=== PATIENT | female | born 1985 | race Caucasian/White ===

== ENCOUNTER 2019-12-20 10:50 | Inpatient (IN) | payer BC ==
[~2019-12-20] VITALS: Ht 163.6 cm; Wt 86.0 kg
[2019-12-20] MEDS ORDERED: LEVE100015 PO (12:38)
[2019-12-20] MEDS ORDERED: METH750T3 PO (12:38)
[2019-12-20] MEDS ORDERED: IBUP-1773 PO (12:38)
[2019-12-20] MEDS ORDERED: POLY17PO6 PO (12:38)
[2019-12-20] MEDS ORDERED: ACET-2840 PO (12:38)
[2019-12-20] MEDS ORDERED: LEVE500T99 PO (12:38)
[2019-12-20] MEDS ORDERED: ENOX30DI4 SQ (12:38)
[2019-12-20] MEDS ORDERED: SENN-109 PO (12:38)
--- NOTE | 2019-12-20 12:39 | NUR ---
THE MED REC WAS ENTERED USING THE DISCHARGE ORDERS FROM [facility]. ONCE MEDICATIONS ARE CONTINUED I WILL SPEAK WITH THE PT AND UPDATE THE MED REC/NOTES NEEDED Addendum: 12/20/19 at 1530 by LEAH HERNANDEZ CPhT THERE IS A SCRIPT ON THE PTS CHART FROM [facility] FOR OXYCODONE HOWEVER THIS MED WAS NOT LISTED ON THE DISCHARGE ORDERS. I LET THE NURSE RAVI KNOW OF THIS AND SHE WAS GOING TO REACH OUT TO DR. DONNELLY. THE PHARMACIST VERIFYING THE ORDERS WAS ALSO QUESTIONING THE TYLENOL AND IBUPROFEN- ON THE DISCHARGE ORDERS THEY ARE LISTED SCHEDULED MEDS (NEITHER ONE IS LISTED PRN OR SAYS ANYTHING TO THAT AFFECT). RAVI WAS ALSO GOING TO FIND OUT FROM DR. DONNELLY IF APAP AND IBUPROFEN SHOULD BE SCHEDULED OR PRN Addendum: 12/22/19 at 1005 by LEAH HERNANDEZ CPhT I SPOKE WITH THE PT AND GOT A MEDICATION LIST FROM [facility] TO COMPLETE THE MED REC. MEDICATIONS THAT HAVE BEEN REMOVED DUE TO PT NOT TAKING PRIOR TO [facility]: METHOCARBAMOL 750MG MIRALAX LOVENOX SENNA-S PT SAYS SHE DOES TAKE TYLENOL AND IBUPROFEN WHILE AT HOME PRN- THE DISCHARGE ORDERS FROM [facility] HAD THEM LISTED SCHEDULED. I DID UPDATE THOSE MEDS TO REFLECT HOW SHE TAKES AT HOME PT DOES TAKE LEVETIRACETAM WHILE AT HOME AND SHE FILLS THEM AT [facility]: LEVETIRACETAM 1000MG LAST FILLED 11-22-2019 #60/30DS LEVETIRACETAM 500MG LAST FILLED 11-17-2019 #30/30DS
[2019-12-20 13:45] VITALS: BP 121/72
[2019-12-20] MEDS ORDERED: guaiFENesin/CODEINE (ROBITUSSIN AC) 10ML UDC PO PRN (13:45)
[2019-12-20] MEDS ORDERED: LACTULOSE SYRUP 10GM/15ML (ENULOSE) 30ML UDC PO PRN (13:45)
[2019-12-20] MEDS ORDERED: CALCIUM CARBONATE 500 MG (TUMS) TAB.CHEW PO PRN (13:45)
[2019-12-20] MEDS ORDERED: BISACODYL 10 MG SUPP (DULCOLAX) PR PRN (13:45)
[2019-12-20] MEDS ORDERED: diphenhydrAMINE 25 MG TAB (BENADRYL) PO PRN (13:45)
[2019-12-20] MEDS ORDERED: ONDANSETRON 4 MG (ZOFRAN) ORAL DISSOLVE TAB PO PRN (13:45)
[2019-12-20] MEDS ORDERED: DOCUSATE SODIUM 100 MG (COLACE) CAP PO PRN (13:45)
[2019-12-20] MEDS ORDERED: LOPERAMIDE 2 MG (IMODIUM) TABLET PO PRN (13:45)
[2019-12-20] MEDS ORDERED: ACETAMINOPHEN 500 MG TAB (TYLENOL) PO PRN (13:45)
[2019-12-20] MEDS ORDERED: MELATONIN 3 MG TABLET PO PRN (13:45)
[2019-12-20] MEDS ORDERED: FLEET ENEMA ADULT 1 EA BTL PR PRN (13:45)
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
[2019-12-20] MEDS ORDERED: IBUPROFEN 600 MG (MOTRIN) TAB PO SCH (14:45)
[2019-12-20] MEDS ORDERED: IBUPROFEN 600 MG (MOTRIN) TAB PO ONE (14:47)
[2019-12-20] MEDS ORDERED: ENOXAPARIN 40 MG/0.4 ML (LOVENOX) SYR ONE (14:47)
--- NOTE | 2019-12-20 15:23 | Physical Therapy Evaluation ---
PT Evaluation-General Medical Diagnosis Admission Date Dec 20, 2019 at 14:35 Medical Diagnosis: R calcaneus fx s/p ORIF; L lateral malleolus ankle fx Onset Date: Dec 14, 2019 Therapy Diagnosis Therapy Diagnosis: Impaired mobility, ROM, strength, ambulation Precautions Precautions/Isolations: Fall Prevention, Standard Precautions Weight Bear Status Right Lower Extremity: Right Non Weight Bearing Left Lower Extremity: Left Weight Bearing/Tolerated Referral Physician: Marilyn Jimenez DO Reason for Referral: Evaluation/Treatment Medical History Additional Medical History seizures, ADHD, depression/anxiety, cholecystectomy, OCD Reviewed History: Yes Social History Home: Single Level Current Living Status: Spouse Entry Into Home: Level Entry PT Steps Into Home: 0 PT Steps Inside Home: 0 Prior Prior Level of Function SCALE: Activities may be completed with or without assistive devices. 9-Lnkosxoadz-xdxicez completes the activity by him/herself with no assistance from a helper. 5-Set-up or Clean-up Assistance-helper sets up or cleans up; patient completes activity. [place] assists only prior to or following the activity. 4-Supervision or Touching Assistance-helper provides verbal cues and/or touching/steadying and/or contact guard assistance as patient completes activity. Assistance may be provided throughout the activity or intermittently. 3-Partial/Moderate Assistance-helper does LESS THAN HALF the effort. [place] lifts, holds or supports trunk or limbs, but provides less than half the effort. 2-Substantial/Maximal Assistance-helper does MORE THAN HALF the effort. [place] lifts or holds trunk or limbs and provides more than half the effort. 3-Aefkhqsqt-wohmzv does ALL the effort. Patient does none of the effort to complete the activity. Or, the assistance of 2 or more helpers is required for the patient to complete the activity. If activity was not attempted, code reason: 7-Patient Refused. 9-Not Applicable-not attempted and the patient did not perform the activity before the current illness, exacerbation or injury. 10-Not Attempted due to Environmental Limitations-(lack of equipment, weather restraints, etc.). 88-Not Attempted due to Medical Conditions or Safety Concerns. Bed Mobility: 6 Transfers (B,C,W/C): 6 Gait: 6 Stairs: 6 Wheelchair Mobility: 6 Indoor Mobility (Ambulation): Independent Stairs: Independent Prior Devices Use: None PT Evaluation-Current Subjective Pt presents sitting upright in recliner with several nurses and OT present in ro om. Pt agrees to PT treatment. Pt reports 8/10 pain; primarily in L ankle. Pt/Family Goals To be independent again Objective Patient Orientation: Person, Place, Time, Eyes Open, Situation, Normal For Age L walking boot R ankle cast ROM/Strength ROM Lower Extremities WFL except immobilized ankles Strength Lower Extremities R Hip flexion 4/5 L Hip flexion 4+/5 B Knee flex/ext: 5/5 All MMT TTP due to bruising Integumentary/Posture Bladder Incontinence: No Sensory Vision: Wears Glasses Hearing: Functional Sensation Right Lower Extremit: Intact Sensation Left Lower Extremity: Intact Sensation Lower Extremities B LE sensation intact to light touch L2-S2 Transfers Roll Left to Right (QC): 3 Sit to Lying (QC): 4 Lying to Sitting/Side of Bed(Q: 3 Sit to Stand (QC): 3 Chair/Tow-uy-Hiyrr Xfer(QC): 3 Toilet Transfer (QC): 3 Car Transfer (QC): 3 Pt able to transfer from sit to lying with stand by assist. Pt required minimal assitance with rolling (verbal cues and physical contact to act as handrail), lying to sitting (raising LE to bed), sit to stand, widhi-fx-wsm, toilet, and car transfers. Gait Does the Patient Walk?: Yes Mode of Locomotion: Both Anticipated Mode of Locomotion: Walk Walk 10 feet (QC): 88 Walk 50 ft with 2 Turns(QC): 88 Walk 150 ft (QC): 88 Walking 10ft/uneven surface-QC: 88 Distance: 6' Gait Assistive Device: FWW Comments/Gait Description Pt able to hop on L walking boot with FWW for balance but yelps with pain each time; pt needed to rest and have walking boot tightened. Pt cued to decrease stride length of hop in order to stay within walker boundaries. Pt able to ambulate 150' with knee scooter assistance; pt moved quickly with this device and required cues for steering, some unsteadiness but no fareed LOB Wheelchair Training Does the Pt Use a Wheelchair?: Yes Distance: 150' Wheel 50 ft with 2 turns (QC): 4 Wheel 150 ft (QC): 4 Type of Wheelchair: Manual Pt able to propel self using UEs; pt is slow but steady with this progression. Pt first utilized B footrests but was also able to hold feet up out of the way for second half of journey. Stairs 1 Step (curb) (QC): 88 4 Steps (QC): 88 12 Steps (QC): 88 Balance Sitting Static: Normal Sitting Dynamic: Normal Standing Static: Poor Standing Dynamic: Poor Picking up an Object (QC): 88 Treatment Standing balance: PT assisted with standing balance while OT assisted with oral care. Pt requires CGA and is unable to balance self upright, she relies on wall on left side to lean against. Assessment/Needs Co-treated with OT due patient's limitations in transfers, strength, balance, endurance, and ability to coordinate upper and lower extremities. Pt able to complete pivot transfers on LLE while complying to NWB status on RLE. Pt struggles to pivot with walker to complete transfers; pt prematurely reaches for WC and sits. Pt is impulsive; moves prior to receiving instructions from therapists on safest way to get from point A to B. Pt struggles with controlled decent with sitting; pt cued to make sure seat is under her before falling backwards. Rehab Potential: Fair PT Short Term Goals Short Term Goals Time Frame: Dec 27, 2019 Roll Left & Right: 4 Sit to lyin Lying to sitting on side of be: 4 Sit to stand: 4 Chair/hlx-pq-osxod transfer: 4 Walk 10 feet: 3 PT Respiratory Scientist Goals Respiratory Scientist Goals PT Snf Goals Time Frame: Jan 10, 2020 Roll Left & Right (QC): 6 Sit to Lying (QC): 6 Lying-Sitting on Side/Bed(QC): 6 Sit to Stand (QC): 6 Chair/Ife-ve-Lylrz Xfer(QC): 6 Toilet Transfer (QC): 6 Car Transfer (QC): 6 Does the Patient Walk: Yes Walk 10 feet (QC): 5 Walk 50ft with 2 Turns (QC): 5 Walk 150 ft (QC): 5 Walking 10ft on Uneven Surface: 5 1 Step (curb) (QC): 3 4 Steps (QC): 88 12 Steps (QC): 88 Picking up an Object (QC): 3 Does the Pt use WC or Scooter?: Yes Wheel 50 feet with 2 turns (QC: 6 Type: Manual Wheel 150 feet: 6 PT Plan Problem List Problem List: Activity Tolerance, Functional Strength, Safety, Balance, Gait, Transfer, Bed Mobility, ROM Treatment/Plan Treatment Plan: Continue Plan of Care Treatment Plan: Bed Mobility, Education, Functional Activity Piero, Functional Strength, Group Therapy, Gait, Safety, Therapeutic Exercise, Transfers Treatment Duration: Jan 10, 2020 Frequency: Modified Program (IRF) (11/10) Estimated Hrs Per Day: 1.5 hours per day Patient and/or Family Agrees t: Yes Safety Risks/Education Patient Education: Gait Training, Transfer Techniques, Reviewed Precautions, Correct Positioning, Reviewed Don/Doff Brace, Safety Issues Teaching Recipient: Patient Teaching Methods: Demonstration, Discussion Response to Teaching: Reinforcement Needed Discharge Recommendations Plan Patient will perform bed mobility and transfer training, balance and endurance training, functional strengthening, stair training, gait training, and education, to improve functional mobility and independence at home. Therapy Discharge Recommendati: Home & Family Time/GCodes Time In: 1355 Time Out: 1525 Total Billed Treatment Time: 90 Total Billed Treatment 1 visit EVL 10' FA 80' PT eval from [id number], co-treat from [id number] 2 different PT's supervised student during this eval and will both sign evaluation MILY GARZA PT Dec 20, 2019 15:23
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
[2019-12-20 16:22] VITALS: BP 116/56
[2019-12-20 16:41] VITALS: BP 106/66
[2019-12-20] MEDS ORDERED: NON-FORMULARY MEDICATION 1 EA EA (Acetaminophen (Tylenol 8 Hour) 650 MG) PO SCH (17:00)
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
[2019-12-20] MEDS: ACETAMINOPHEN 325 MG TABLET PO SCH ×2 (17:39→20:11)
[2019-12-20] MEDS ORDERED: ENOXAPARIN 40 MG/0.4 ML (LOVENOX) SYR SC SCH (20:00)
[2019-12-20] MEDS: DOCUSATE SODIUM 100 MG (COLACE) CAP PO SCH (20:07)
[2019-12-20] MEDS: SENNA W/DOCUSATE (SENOKOT S) TABLET PO SCH (20:07)
[2019-12-20] MEDS: polyethylene glycoL POWDER 17 GM (MIRALAX) PACK PO SCH (20:07)
[2019-12-20] MEDS: LEVETIRACETAM 1,000 MG (KEPPRA) TABLET PO SCH (20:11)
[2019-12-20] MEDS: METHOCARBAMOL 750 MG (ROBAXIN) TAB PO SCH (20:11)
[2019-12-20] MEDS: LEVETIRACETAM 500 MG (KEPPRA) TAB PO SCH (20:11)
[2019-12-20] MEDS ORDERED: SENNA W/DOCUSATE (SENOKOT S) TABLET PO SCH (21:00)
[2019-12-20] MEDS ORDERED: polyethylene glycoL POWDER 17 GM (MIRALAX) PACK PO SCH (21:00)
[2019-12-21 04:47] LABS: BASOPHILS % (AUTO) 0 % (0-10); EOSINOPHILS # (AUTO) 0.2 10^3/uL (0.0-0.3); EOSINOPHILS % (AUTO) 4 % (0-10); HEMATOCRIT 29 % (35-52); HEMOGLOBIN 9.1 g/dL (11.5-16.0); LYMPHOCYTES # (AUTO) 1.1 10^3/uL (1.0-4.0); LYMPHOCYTES % (AUTO) 18 % (12-44); MEAN CORPUSCULAR HEMOGLOBIN 27 pg (25-34); MEAN CORPUSCULAR HGB CONC 32 g/dL (32-36); MEAN CORPUSCULAR VOLUME 84 fL (80-99); MEAN PLATELET VOLUME 10.4 fL (9.0-12.2); MONOCYTES # (AUTO) 0.6 10^3/uL (0.0-1.0); MONOCYTES % (AUTO) 10 % (0-12); NEUTROPHILS # (AUTO) 4.2 10^3/uL (1.8-7.8); NEUTROPHILS % (AUTO) 68 % (42-75); PLATELET COUNT 255 10^3/uL (130-400); WHITE BLOOD COUNT 6.2 10^3/uL (4.3-11.0)
[2019-12-21 05:08] LABS: ALANINE AMINOTRANSFERASE 97 U/L (0-55); ALBUMIN 3.2 GM/DL (3.2-4.5); ALKALINE PHOSPHATASE 115 U/L (40-136); BILIRUBIN,TOTAL 0.6 MG/DL (0.1-1.0); BUN/CREATININE RATIO 22; CALCIUM 8.2 MG/DL (8.5-10.1); CARBON DIOXIDE 22 MMOL/L (21-32); CHLORIDE 107 MMOL/L (98-107); CREATININE SERUM 0.77 MG/DL (0.60-1.30); GFR ESTIMATED > 60; GLUCOSE 98 MG/DL (70-105); POTASSIUM 4.2 MMOL/L (3.6-5.0); SODIUM 138 MMOL/L (135-145); TOTAL PROTEIN 6.4 GM/DL (6.4-8.2)
[2019-12-21 05:56] VITALS: BP 113/64
--- NOTE | 2019-12-21 08:30 | NUR ---
MEDICATED WITH OXY FOR LEFT FOOT PAIN. HAS A HIGH ANXIETY LEVEL. PADDED SIDE RAILS.
[2019-12-21] MEDS: polyethylene glycoL POWDER 17 GM (MIRALAX) PACK PO SCH ×2 (09:00→21:00)
[2019-12-21] MEDS: SENNA W/DOCUSATE (SENOKOT S) TABLET PO SCH ×2 (09:00→21:00)
[2019-12-21] MEDS: DOCUSATE SODIUM 100 MG (COLACE) CAP PO SCH ×2 (09:00→21:00)
--- NOTE | 2019-12-21 09:10 | PM&R Progress Note ---
Subjective HPI/CC On Admission Date Seen by Provider: Dec 21, 2019 Time Seen by Provider: 09:00 Subjective/Events-last exam Pt had a pretty good night Pain is well controlled Left foot still causes a lot of pain Has problems with coping due to mental illness Checked meds and labs Conferred with RN Reviewed therapy notes Review of Systems General: Fatigue, Malaise Neurological: Weakness Objective Exam Vital Signs Vital Signs Date Time Temp Pulse Resp B/P (MAP) Pulse Ox O2 Delivery O2 Flow Rate FiO2 12/21/19 17:29 37.0 81 16 101/58 (72) 96 Room Air Capillary Refill : Less Than 3 SecondsLess Than 3 Seconds General Appearance: No Apparent Distress, WD/WN, Chronically ill HEENT: PERRL/EOMI, Normal ENT Inspection, Pharynx Normal Neck: Full Range of Motion, Normal Inspection, Non Tender, Supple, Carotid Bruit Respiratory: Chest Non Tender, Lungs Clear, Normal Breath Sounds, No Accessory Muscle Use, No Respiratory Distress Cardiovascular: Regular Rate, Rhythm, No Gallop, No JVD, No Murmur, Normal Peripheral Pulses Gastrointestinal: Normal Bowel Sounds, No Organomegaly, No Pulsatile Mass, Non Tender, Soft Back: Normal Inspection, No CVA Tenderness, No Vertebral Tenderness Extremity: Normal Capillary Refill, Normal Inspection, Normal Range of Motion, Non Tender, No Calf Tenderness, Pedal Edema Neurologic/Psychiatric: Alert, Oriented x3, No Motor/Sensory Deficits, Normal Mood/Affect, 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 FIM Transfers Therapy Code Descriptions/Definitions Functional [place] Measure: 0=Not Assessed/NA 4=Minimal Assistance 1=Total Assistance 5=Supervision or Setup 2=Maximal Assistance 6=Modified [place] 3=Moderate Assistance 7=Complete IndependenceSCALE: Activities may be completed with or without assistive devices. 3-Qbhbrpekkz-wkzyijx completes the activity by him/herself with no assistance from a helper. 5-Set-up or Clean-up Assistance-helper sets up or cleans up; patient completes activity. [place] assists only prior to or following the activity. 4-Supervision or Touching Assistance-helper provides verbal cues and/or touching/steadying and/or contact guard assistance as patient completes activity. Assistance may be provided throughout the activity or intermittently. 3-Partial/Moderate Assistance-helper does LESS THAN HALF the effort. [place] lifts, holds or supports trunk or limbs, but provides less than half the effort. 2-Substantial/Maximal Assistance-helper does MORE THAN HALF the effort. [place] lifts or holds trunk or limbs and provides more than half the effort. 6-Xfaewcuqj-cxqirp does ALL the effort. Patient does none of the effort to complete the activity. Or, the assistance of 2 or more helpers is required for the patient to complete the activity. If activity was not attempted, code reason: 7-Patient Refused. 9-Not Applicable-not attempted and the patient did not perform the activity before the current illness, exacerbation or injury. 10-Not Attempted due to Environmental Limitations-(lack of equipment, weather restraints, etc.). 88-Not Attempted due to Medical Conditions or Safety Concerns. Roll Left to Right (QC): 3 Sit to Lying (QC): 4 Sit to Stand (QC): 3 Chair/Gep-in-Ikzmq Xfer(QC): 3 Car Transfer (QC): 3 Gait Training Does the Patient Walk?: Yes Walk 10 feet (QC): 88 Walk 50 ft with 2 Turns(QC): 88 Walk 150 ft (QC): 88 Walking 10ft/uneven surface-QC: 88 Gait Assistive Device: FWW Wheelchair Training Does the Pt Use a Wheelchair?: Yes Distance: 150' Wheel 50 ft with 2 turns (QC): 4 Wheel 150 ft (QC): 4 Type of Wheelchair: Manual Stair Training 1 Step (curb) (QC): 88 4 Steps (QC): 88 12 Steps (QC): 88 Balance Picking up an Object (QC): 88 ADL-Treatment Eating (QC): 6 Oral Hygiene (QC): 4 (CGA standing at sink, pt leaning on wall on left side) Shower/Bathe Self (QC): 7 Upper Body Dressing (QC): 7 Lower Body Dressing (QC): 7 On/Off Footwear (QC): 3 (Mod A, assist doffing LLE boot, pt able to don boot with min A) Toileting Hygiene (QC): 3 (Pt able to manage pants down and perform hygiene, assist managing pants up) Assessment/Plan Assessment and Plan Assess & Plan/Chief Complaint Assessment: Calcaneal fracture with ankle fracture Seizure d/o Hypoglycemia OCD Mental illness PLan: Pain control IRF protocol Home meds Monitor BP 12/21/19: Pain control Monitor liver enzymes and minimize Tylenol Maintain bowel regimen (1) Calcaneal fracture (2) Chronic UTI (3) Hypoglycemia (4) Seizure disorder (5) OCD (obsessive compulsive disorder) (6) Depression (7) Anxiety (8) Constipation SYDNEE DONNELLY DO Dec 21, 2019 09:10
[2019-12-21] MEDS: LEVETIRACETAM 1,000 MG (KEPPRA) TABLET PO SCH ×2 (09:18→20:52)
[2019-12-21] MEDS: ACETAMINOPHEN 325 MG TABLET PO SCH ×4 (09:18→20:53)
[2019-12-21] MEDS: METHOCARBAMOL 750 MG (ROBAXIN) TAB PO SCH ×3 (09:18→20:58)
[2019-12-21] MEDS: ENOXAPARIN 40 MG/0.4 ML (LOVENOX) SYR SC SCH (09:19)
--- NOTE | 2019-12-21 09:21 | Occupational Ther Daily Note ---
OT Current Status-Daily Note Subjective Pt alert, sitting in recliner. Pt emotional when QUINN entered room. Pt crying stating that she just wanted to go home. QUINN calmed pt down and pt stated that "I am the one supposed to take care of everyone, I am not used to being taken care of." QUINN encouraged pt to take control of her healing process to become independent and go home. Pt agrees to therapy. Requested pain meds, 4/10 pain rate, nrsg brought medication. Mental Status/Objective Patient Orientation: Person, Place, Time, Situation Attachments: Other-See Comments (L foot brace, R cast) ADL-Treatment PT/OT co-treat, ([id number]) skilled of 2 clinicians required due to need of skilled instruction/modifications to transfers/mobility and increased pain. PT working on safe functional transfers and mobility. OT working on UE placement with transfers and ADLs. Pt agrees to shower. Pt required max verbal cues and minimal physical cues to use knee scooter to transfer into shower. Verbal cues to slow down and take transfers/standing step by step for safe sit to stand. Assist x2 for sit to stand then assist to hike pants over hips. Pt able to don foot brace while sitting in recliner, max A to doff/don brace while sitting on shower bench. Assist to doff socks. Pt completed shower using shower bench, hand held shower and grabbars. Pt leaning side to side to cleanse buttocks. Cleansed all other areas except lower legs/feet. Assist x2 to don underwear, one person to assist in standing while one person hiked pants. Assist x2 to SPT out of shower to w/c. Pt able to sit at sink to complete oral care, independently. Pt propelled w/c to bed for transfer. Pt placed R knee onto bed then pivoted on that knee with hands on bed to go to supine. After therapy, pt lying in bed with call light/phone in reach. All needs met in room. Therapy Code Descriptions/Definitions Functional [place] Measure: 0=Not Assessed/NA 4=Minimal Assistance 1=Total Assistance 5=Supervision or Setup 2=Maximal Assistance 6=Modified [place] 3=Moderate Assistance 7=Complete IndependenceSCALE: Activities may be completed with or without assistive devices. 3-Wkpahlhfrx-pfscyej completes the activity by him/herself with no assistance from a helper. 5-Set-up or Clean-up Assistance-helper sets up or cleans up; patient completes activity. [place] assists only prior to or following the activity. 4-Supervision or Touching Assistance-helper provides verbal cues and/or touching/steadying and/or contact guard assistance as patient completes activity. Assistance may be provided throughout the activity or intermittently. 3-Partial/Moderate Assistance-helper does LESS THAN HALF the effort. [place] lifts, holds or supports trunk or limbs, but provides less than half the effort. 2-Substantial/Maximal Assistance-helper does MORE THAN HALF the effort. [place] lifts or holds trunk or limbs and provides more than half the effort. 0-Aekhannkv-kkyhmd does ALL the effort. Patient does none of the effort to complete the activity. Or, the assistance of 2 or more helpers is required for the patient to complete the activity. If activity was not attempted, code reason: 7-Patient Refused. 9-Not Applicable-not attempted and the patient did not perform the activity before the current illness, exacerbation or injury. 10-Not Attempted due to Environmental Limitations-(lack of equipment, weather restraints, etc.). 88-Not Attempted due to Medical Conditions or Safety Concerns. Oral Hygiene (QC): 6 Bathing Location: L Arm, R Arm, L Upper Leg, R Upper Leg, R Lower Leg (including foot) (cast), Chest, Abdomen, Buttocks, Perineal Area Shower/Bathe Self (QC): 3 Upper Body Dressing (QC): 88 (Pt does not have regular clothe at this time. Pt's is bringing clothes later today.) Lower Body Dressing (QC): 1 On/Off Footwear: 2 Education OT Patient Education: Rehab process, Safety issues, Transfer techniques, W/C management Teaching Recipient: Patient Teaching Methods: Demonstration, Discussion Response to Teaching: Verbalize Understanding, Reinforcement Needed OT Senior Care Goals Aws Solution Architect Goals Time Frame: Jan 10, 2020 Eating (QC): 6 Oral Hygiene (QC): 6 Toileting Hygiene (QC): 6 Shower/Bathe Self (QC): 6 Upper Body Dressing (QC): 6 Lower Body Dressing (QC): 6 On/Off Footwear (QC): 6 1=Demonstrate adherence to instructed precautions during ADL tasks. 2=Patient will verbalize/demonstrate understanding of assistive devices/modifications for ADL. 3=Patient will improve strength/tolerance for activity to enable patient to perform ADL's. OT Education/Plan Problem List/Assessment Assessment: Decreased Activ Tolerance, Decreased Safety Aware, Dependent Transfers, Impaired Coordination, Impaired Funct Balance, Impaired Self-Care Skills Discharge Recommendations Plan/Recommendations: Continue POC Treatment Plan/Plan of Care Patient would benefit from OT for education, treatment and training to promote independence in ADL's, mobility, safety and/or upper extremity function for ADL's. Plan of Care: ADL Retraining, Functional Mobility, UE Funct Exercise/Act Treatment Duration: Jan 10, 2020 Frequency: Modified Program (IRF) (11/10) Estimated Hrs Per Day: 1.5 hours per day Rehab Potential: Fair Time/GCodes Start Time: 08:15 Stop Time: 09:15 Total Time Billed (hr/min): 60 Billed Treatment Time 1 visit-ADL 4 (60 min) co-treat for 60 min ([id number]) LES MUELLER Dec 21, 2019 09:21
--- NOTE | 2019-12-21 09:23 | Physical Therapy Daily Note ---
PT Daily Note-Current Subjective Pt sitting in recliner with feet up upon arrival. Pt agrees to PT/OT co-treat for showering. Need for 2 skilled clinicians that could not otherwise be provided by a picking tech due to decreased dynamic standing balance and coordination of UE & LE especially with mobility and transfers. Pain Numeric Pain Scale: 8 Location: Left Location Body Site: Foot Pain Description: Pressure Mental Status Patient Orientation: Person, Place, Situation Attachments: Other-See Comments (Walking boot for L LE & cast for R LE) Transfers SCALE: Activities may be completed with or without assistive devices. 1-Xpxwcerjng-sqpfics completes the activity by him/herself with no assistance from a helper. 5-Set-up or Clean-up Assistance-helper sets up or cleans up; patient completes activity. Aroda assists only prior to or following the activity. 4-Supervision or Touching Assistance-helper provides verbal cues and/or touching/steadying and/or contact guard assistance as patient completes activity. Assistance may be provided throughout the activity or intermittently. 3-Partial/Moderate Assistance-helper does LESS THAN HALF the effort. Aroda lifts, holds or supports trunk or limbs, but provides less than half the effort. 2-Substantial/Maximal Assistance-helper does MORE THAN HALF the effort. Aroda lifts or holds trunk or limbs and provides more than half the effort. 6-Ikmdrasla-atdepg does ALL the effort. Patient does none of the effort to complete the activity. Or, the assistance of 2 or more helpers is required for the patient to complete the activity. If activity was not attempted, code reason: 7-Patient Refused. 9-Not Applicable-not attempted and the patient did not perform the activity before the current illness, exacerbation or injury. 10-Not Attempted due to Environmental Limitations-(lack of equipment, weather restraints, etc.). 88-Not Attempted due to Medical Conditions or Safety Concerns. Sit to Lying (QC): 4 Sit to Stand (QC): 3 Weight Bearing Right Lower Extremity: Right Non Weight Bearing Left Lower Extremity: Left Weight Bearing/Tolerated Gait Training Does the Patient Walk?: Yes Distance: 15' Walk 10 feet (QC): 4 Gait Persons Needed: 1 Pt uses knee scooter for amb. Wheelchair Training Does the Pt Use a Wheelchair?: Yes Type of Wheelchair: Manual Treatments PT/OT co-treat, ([id number]) skilled of 2 clinicians required due to need of skilled instruction/modifications to transfers/mobility and increased pain. PT working on safe functional transfers and mobility. OT working on UE placement with transfers and ADLs. Pt agrees to shower. Pt required max verbal cues and minimal physical cues to use knee scooter to transfer into shower. Verbal cues to slow down and take transfers/standing step by step for safe sit to stand. Assist x2 for sit to stand then assist to hike pants over hips. Pt able to don foot brace while sitting in recliner, max A to doff/don brace while sitting on shower bench. Assist to doff socks. Pt completed shower using shower bench, hand held shower and grabbars. Pt leaning side to side to cleanse buttocks. Cleansed all other areas except lower legs/feet. Assist x2 to don underwear, one person to assist in standing while one person hiked pants. Assist x2 to SPT out of shower to w/c. Pt able to sit at sink to complete oral care, independently. Pt propelled w/c to bed for transfer. Pt placed R knee onto bed then pivoted on that knee with hands on bed to go to supine. After therapy, pt lying in bed with call light/phone in reach. All needs met in room. Assessment Current Status: Fair Progress Pt is teary at the thought of staying longer in hospital but knows she will get better with work on ARU. Pt charline. tx well. PT Short Term Goals Short Term Goals Time Frame: Dec 27, 2019 Roll Left & Right: 4 Sit to lyin Lying to sitting on side of be: 4 Sit to stand: 4 Chair/bwv-zh-vxguf transfer: 4 Walk 10 feet: 3 PT Sec Accountant Goals Mcfp Goals PT Sec Accountant Goals Time Frame: Jan 03, 2020 Roll Left & Right (QC): 6 Sit to Lying (QC): 6 Lying-Sitting on Side/Bed(QC): 6 Sit to Stand (QC): 6 Chair/Njn-hr-Midam Xfer(QC): 6 Toilet Transfer (QC): 6 Car Transfer (QC): 6 Does the Patient Walk: Yes Walk 10 feet (QC): 5 Walk 50ft with 2 Turns (QC): 5 Walk 150 ft (QC): 4 Walking 10ft on Uneven Surface: 5 1 Step (curb) (QC): 3 4 Steps (QC): 3 12 Steps (QC): 3 Picking up an Object (QC): 4 Does the Pt use WC or Scooter?: Yes Wheel 50 feet with 2 turns (QC: 6 Type: Manual Wheel 150 feet: 6 PT Plan Problem List Problem List: Activity Tolerance, Functional Strength, Gait, Transfer Treatment/Plan Treatment Plan: Continue Plan of Care Treatment Plan: Bed Mobility, Education, Functional Activity Piero, Functional Strength, Group Therapy, Gait, Safety, Therapeutic Exercise, Transfers Treatment Duration: Jan 03, 2020 Frequency: Modified Program (IRF) (11/10) Estimated Hrs Per Day: 1.5 hours per day Safety Risks/Education Patient Education: Gait Training, Transfer Techniques, Correct Positioning, Safety Issues Teaching Recipient: Patient Teaching Methods: Discussion Response to Teaching: Verbalize Understanding Time/GCodes Time In: 815 Time Out: 915 Total Billed Treatment Time: 60 Total Billed Treatment 1, FA x4 (60m) Co-treat w/OT for 60m ([id number]) RAVI MARC PTA Dec 21, 2019 09:23
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
--- NOTE | 2019-12-21 15:00 | Therapy Group Daily Note ---
Therapy Daily Group Note Patient Education Topic Home Safety Exercises LE Seated Exercise, UE Exercise Session Ratio (pt:therapist): 4:1 Goal of Session: Education on ARU Expectations, Home Safety Strategies, UE/LE Strengthing Goal Met for this Session: Yes Pt Benefit of Group: Contributions to Others, F/U Use of Strategies @Home, Increased Functional Safety, Increased Functional Strength, Improved Cognition, Recognition of Peers, Socialization Other/Notes Pt propelled using [facility] for OT/PT group. Group consisted of LE/UE seated exercises, ARU description/expectations, and home safety. Pt participated in introduction(name, where you are from, and random question), actively listened to peers.Engaged in seated LE/UE exercises. Pt acknowledged understanding of educational topics by giving own examples. Pt ambulated back to room. After grou p, pt laying in bed. Call light/phone in reach. All needs met. Start Time: 12:50 Stop Time: 14:15 Total Billed Treatment Time: 85 Total Billed Treatment 1, GRP (85m) RAVI MARC PTA Dec 21, 2019 15:00
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
[2019-12-21 17:29] VITALS: BP 101/58
[2019-12-21] MEDS: LEVETIRACETAM 500 MG (KEPPRA) TAB PO SCH (20:52)
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
[2019-12-22 06:00] VITALS: BP 113/64
[2019-12-22] MEDS: LEVETIRACETAM 1,000 MG (KEPPRA) TABLET PO SCH ×2 (08:39→20:43)
[2019-12-22] MEDS: DOCUSATE SODIUM 100 MG (COLACE) CAP PO SCH ×2 (08:39→20:46)
[2019-12-22] MEDS: ACETAMINOPHEN 325 MG TABLET PO SCH ×4 (08:39→20:44)
[2019-12-22] MEDS: METHOCARBAMOL 750 MG (ROBAXIN) TAB PO SCH ×3 (08:39→20:43)
[2019-12-22] MEDS: polyethylene glycoL POWDER 17 GM (MIRALAX) PACK PO SCH ×2 (09:30→20:46)
[2019-12-22] MEDS: SENNA W/DOCUSATE (SENOKOT S) TABLET PO SCH ×2 (09:30→20:46)
--- NOTE | 2019-12-22 09:50 | Occupational Ther Daily Note ---
OT Current Status-Daily Note Subjective Pt alert, sitting in recliner when OT entered. Pt agreed to therapy. Stated she really didn't have pain right now just 05/09. Mental Status/Objective Patient Orientation: Person, Place, Time, Situation Attachments: Other-See Comments L leg brace ADL-Treatment Co-treat with PT ([id number]) 2 skilled clinicians required due to need of skilled instructions for safe transfers/mobility and pain. PT focusing functional transfers and mobility using knee scooter while OT focusing on ADLs and UE placement during transfers. Pt sit-stand to knee scooter (see PT for grade of transfers) and propelled to sink in bathroom. Pt completed oral care while on knee scooter with SBA. Pt then propelled to gym. Pt requires verbal cues for positioning of knee scooter and self with all transfers. Pt tends to padgett through transfers and places self in unsafe situations when transferring. Verbal instructions for safety continue though pt states "I won't do it like this at home.", or "I know". Pt tends to grab at objects and pull self while on knee scooter if in reach instead of keeping hands on handlebars and using L foot to propel. Working on training pt to complete as safe of transfers as possible. Pt tends to place R knee onto surface then pull self into crawling into bed or kneeling on surface while L LE pivots. Pt will attempt to pull or push scooter into position instead of guiding/driving scooter to manipulate it to a safe position. CGA for transfer onto toilet with assist x1 for transfer and assist x1 to stabilize scooter and apply brakes. Pt is able to manipulate clothing and cleanse self while assist x1 to stabilize scooter and apply brakes. Min A to don/doff foot brace. After session, pt lying in bed with call light/phone in reach. All needs met in room. Therapy Code Descriptions/Definitions Functional [place] Measure: 0=Not Assessed/NA 4=Minimal Assistance 1=Total Assistance 5=Supervision or Setup 2=Maximal Assistance 6=Modified [place] 3=Moderate Assistance 7=Complete IndependenceSCALE: Activities may be completed with or without assistive devices. 1-Unlwonbrmp-erejzrk completes the activity by him/herself with no assistance from a helper. 5-Set-up or Clean-up Assistance-helper sets up or cleans up; patient completes activity. [place] assists only prior to or following the activity. 4-Supervision or Touching Assistance-helper provides verbal cues and/or touching/steadying and/or contact guard assistance as patient completes activity. Assistance may be provided throughout the activity or intermittently. 3-Partial/Moderate Assistance-helper does LESS THAN HALF the effort. [place] lifts, holds or supports trunk or limbs, but provides less than half the effort. 2-Substantial/Maximal Assistance-helper does MORE THAN HALF the effort. [place] lifts or holds trunk or limbs and provides more than half the effort. 5-Mtcivoxjh-szqziw does ALL the effort. Patient does none of the effort to comp lete the activity. Or, the assistance of 2 or more helpers is required for the patient to complete the activity. If activity was not attempted, code reason: 7-Patient Refused. 9-Not Applicable-not attempted and the patient did not perform the activity before the current illness, exacerbation or injury. 10-Not Attempted due to Environmental Limitations-(lack of equipment, weather restraints, etc.). 88-Not Attempted due to Medical Conditions or Safety Concerns. Oral Hygiene (QC): 4 Other Treatment Once in gym pt transferred to chair with max verbal cues for functional transfer. Pt struggles performing SPT from knee scooter to chair. Pt states that most of her house is carpet. Pt then propelled to waiting room Education OT Patient Education: Safety issues, Transfer techniques Teaching Recipient: Patient Teaching Methods: Demonstration, Discussion Response to Teaching: Verbalize Understanding, Return Demonstration, Reinforcement Needed OT Chcf Goals Chcf Goals Time Frame: Jan 10, 2020 Eating (QC): 6 Oral Hygiene (QC): 6 Toileting Hygiene (QC): 6 Shower/Bathe Self (QC): 6 Upper Body Dressing (QC): 6 Lower Body Dressing (QC): 6 On/Off Footwear (QC): 6 1=Demonstrate adherence to instructed precautions during ADL tasks. 2=Patient will verbalize/demonstrate understanding of assistive devices/ modifications for ADL. 3=Patient will improve strength/tolerance for activity to enable patient to perform ADL's. OT Education/Plan Problem List/Assessment Assessment: Decreased Activ Tolerance, Decreased Safety Aware, Impaired Coordination, Impaired Funct Balance, Impaired Self-Care Skills Discharge Recommendations Plan/Recommendations: Continue POC Treatment Plan/Plan of Care Patient would benefit from OT for education, treatment and training to promote independence in ADL's, mobility, safety and/or upper extremity function for AD L's. Plan of Care: ADL Retraining, Functional Mobility, UE Funct Exercise/Act Treatment Duration: Jan 10, 2020 Frequency: Modified Program (IRF) (11/10) Estimated Hrs Per Day: 1.5 hours per day Rehab Potential: Fair Time/GCodes Start Time: 09:00 Stop Time: 10:00 Total Time Billed (hr/min): 60 Billed Treatment Time 1 visit-ADL 1 (10 min) FA 3 (50 min) co-treat with PT 60 min LES MUELLER Dec 22, 2019 09:50
[2019-12-22] MEDS: ENOXAPARIN 40 MG/0.4 ML (LOVENOX) SYR SC SCH (09:57)
--- NOTE | 2019-12-22 10:11 | Physical Therapy Daily Note ---
PT Daily Note-Current Subjective Pt sitting in recliner upon arrival. Pt agrees to PT/OT co-treat to work on safety of transfers. Pain Location: Left Location Body Site: Ankle Pain Description: Ache Comment: Pt reports pain but does not rate. Mental Status Patient Orientation: Person, Place, Situation Attachments: Other-See Comments (Walking boot for L LE & cast for R LE) Transfers SCALE: Activities may be completed with or without assistive devices. 4-Aphxqihemc-ufaegaw completes the activity by him/herself with no assistance from a helper. 5-Set-up or Clean-up Assistance-helper sets up or cleans up; patient completes activity. [place] assists only prior to or following the activity. 4-Supervision or Touching Assistance-helper provides verbal cues and/or touchi ng/steadying and/or contact guard assistance as patient completes activity. Assistance may be provided throughout the activity or intermittently. 3-Partial/Moderate Assistance-helper does LESS THAN HALF the effort. [place] lifts, holds or supports trunk or limbs, but provides less than half the effort. 2-Substantial/Maximal Assistance-helper does MORE THAN HALF the effort. [place] lifts or holds trunk or limbs and provides more than half the effort. 5-Mbsepiyzo-weimeg does ALL the effort. Patient does none of the effort to complete the activity. Or, the assistance of 2 or more helpers is required for the patient to complete the activity. If activity was not attempted, code reason: 7-Patient Refused. 9-Not Applicable-not attempted and the patient did not perform the activity before the current illness, exacerbation or injury. 10-Not Attempted due to Environmental Limitations-(lack of equipment, weather restraints, etc.). 88-Not Attempted due to Medical Conditions or Safety Concerns. Lying to Sitting/Side of Bed(Q: 5 Sit to Stand (QC): 4 Chair/Tua-ie-Njxvv Xfer(QC): 4 Toilet Transfer (QC): 4 Weight Bearing Right Lower Extremity: Right Non Weight Bearing Left Lower Extremity: Left Weight Bearing/Tolerated Gait Training Does the Patient Walk?: Yes Distance: 150' x2 Walk 10 feet (QC): 5 Walk 50 ft with 2 Turns(QC): 5 Walk 150 ft (QC): 5 Walking 10ft/uneven surface-QC: 5 Gait Persons Needed: 1 Pt uses knee scooter for amb. Treatments Co-treat with PT ([id number]) 2 skilled clinicians required due to need of skilled instructions for safe transfers/mobility and pain. PT focusing functional transfers and mobility using knee scooter while OT focusing on ADLs and UE placement during transfers. Pt sit-stand to knee scooter (see PT for grade of transfers) and propelled to sink in bathroom. Pt completed oral care while on knee scooter with SBA. Pt then propelled to gym. Pt requires verbal cues for positioning of knee scooter and self with all transfers. Pt tends to padgett through transfers and places self in unsafe situations when transferring. Verbal instructions for safety continue though pt states "I won't do it like this at home.", or "I know". Pt tends to grab at objects and pull self while on knee scooter if in reach instead of keeping hands on handlebars and using L foot to propel. Working on training pt to complete as safe of transfers as possible. Pt tends to place R knee onto surface then pull self into crawling into bed or kneeling on surface while L LE pivots. Pt will attempt to pull or push scooter into position instead of guiding/driving scooter to manipulate it to a safe position. CGA for transfer onto toilet with assist x1 for transfer and assist x1 to stabilize scooter and apply brakes. Pt is able to manipulate clothing and cleanse self while assist x1 to stabilize scooter and apply brakes. Min A to don/doff foot brace. After session, pt lying in bed with call light/phone in reach. All needs met in room. Assessment Current Status: Fair Progress Pt does not complete tasks with safety even after given VC or demonstrations. PT Short Term Goals Short Term Goals Time Frame: Dec 27, 2019 Roll Left & Right: 4 Sit to lyin Lying to sitting on side of be: 4 Sit to stand: 4 Chair/vuh-rw-fnnnf transfer: 4 Walk 10 feet: 3 PT Senior Care Goals Senior Care Goals PT Senior Care Goals Time Frame: Jan 10, 2020 Roll Left & Right (QC): 6 Sit to Lying (QC): 6 Lying-Sitting on Side/Bed(QC): 6 Sit to Stand (QC): 6 Chair/Bcn-dm-Pvlcc Xfer(QC): 6 Toilet Transfer (QC): 6 Car Transfer (QC): 6 Does the Patient Walk: Yes Walk 10 feet (QC): 5 Walk 50ft with 2 Turns (QC): 5 Walk 150 ft (QC): 5 Walking 10ft on Uneven Surface: 5 1 Step (curb) (QC): 3 4 Steps (QC): 88 12 Steps (QC): 88 Picking up an Object (QC): 3 Does the Pt use WC or Scooter?: Yes Wheel 50 feet with 2 turns (QC: 6 Type: Manual Wheel 150 feet: 6 PT Plan Problem List Problem List: Activity Tolerance, Functional Strength, Safety Treatment/Plan Treatment Plan: Continue Plan of Care Treatment Plan: Bed Mobility, Education, Functional Activity Piero, Functional Strength, Group Therapy, Gait, Safety, Therapeutic Exercise, Transfers Treatment Duration: Jan 10, 2020 Frequency: Modified Program (IRF) (11/10) Estimated Hrs Per Day: 1.5 hours per day Patient and/or Family Agrees t: Yes Safety Risks/Education Patient Education: Transfer Techniques, Correct Positioning, Safety Issues Teaching Recipient: Patient Teaching Methods: Demonstration, Discussion Response to Teaching: Reinforcement Needed Time/GCodes Time In: 900 Time Out: 1000 Total Billed Treatment Time: 60 Total Billed Treatment 1, GT x2 (25m) & FA x2 (35m) RAVI MARC PTA Dec 22, 2019 10:11
--- NOTE | 2019-12-22 13:16 | Occupational Ther Daily Note ---
OT Current Status-Daily Note Subjective Pt laying in bed when OT entered. Pt agreed to therapy. No c/o pain reported. in room for education on pt's mobility and transfers. Mental Status/Objective Patient Orientation: Person, Place, Time, Situation ADL-Treatment Pt stated she needed to use the restroom. Pt supine to EOB, SBA. Pt able to don/doff leg brace with supervision. Pt transferred R knee on to knee scooter, CGA and positioning of knee scooter. Pt propelled knee scooter to bathroom with SBA. CGA for transfer onto toilet with assist x1 for transfer and assist x1 to stabilize scooter and apply brakes. Pt is able to manipulate clothing and cleanse self while assist x1 to stabilize scooter and apply brakes. Pt then transfers back to bed, CGA. Therapy Code Descriptions/Definitions Functional [place] Measure: 0=Not Assessed/NA 4=Minimal Assistance 1=Total Assistance 5=Supervision or Setup 2=Maximal Assistance 6=Modified [place] 3=Moderate Assistance 7=Complete IndependenceSCALE: Activities may be completed with or without assistive devices. 8-Gbbfmyfina-vxlcoib completes the activity by him/herself with no assistance from a helper. 5-Set-up or Clean-up Assistance-helper sets up or cleans up; patient completes activity. [place] assists only prior to or following the activity. 4-Supervision or Touching Assistance-helper provides verbal cues and/or touching/steadying and/or contact guard assistance as patient completes activity. Assistance may be provided throughout the activity or intermittently. 3-Partial/Moderate Assistance-helper does LESS THAN HALF the effort. [place] lifts, holds or supports trunk or limbs, but provides less than half the effort. 2-Substantial/Maximal Assistance-helper does MORE THAN HALF the effort. [place] lifts or holds trunk or limbs and provides more than half the effort. 6-Qvxgshhsv-vibhyn does ALL the effort. Patient does none of the effort to complete the activity. Or, the assistance of 2 or more helpers is required for the patient to complete the activity. If activity was not attempted, code reason: 7-Patient Refused. 9-Not Applicable-not attempted and the patient did not perform the activity before the current illness, exacerbation or injury. 10-Not Attempted due to Environmental Limitations-(lack of equipment, weather restraints, etc.). 88-Not Attempted due to Medical Conditions or Safety Concerns. Other Treatment Pt then completes 3 sets x10 reps of 5 B UE red theraband exercises for strengthening UE for functional and safe transfers and ADLs. Pt required skilled instruction for exercises and resting breaks between each set. After therapy, pt laying in bed. Call light/phone in reach. All needs met. present in room. Education OT Patient Education: Exercise program Teaching Recipient: Patient, Significant Other Teaching Methods: Demonstration, Handout, Discussion Response to Teaching: Verbalize Understanding, Return Demonstration OT Box Packer Goals Senior Living Goals Time Frame: Jan 10, 2020 Eating (QC): 6 Oral Hygiene (QC): 6 Toileting Hygiene (QC): 6 Shower/Bathe Self (QC): 6 Upper Body Dressing (QC): 6 Lower Body Dressing (QC): 6 On/Off Footwear (QC): 6 1=Demonstrate adherence to instructed precautions during ADL tasks. 2=Patient will verbalize/demonstrate understanding of assistive devices/wisam fications for ADL. 3=Patient will improve strength/tolerance for activity to enable patient to perform ADL's. OT Education/Plan Problem List/Assessment Assessment: Decreased UE Strength, Impaired Coordination, Impaired Funct Balance, Impaired I ADL's, Impaired Self-Care Skills Discharge Recommendations Plan/Recommendations: Continue POC Treatment Plan/Plan of Care Patient would benefit from OT for education, treatment and training to promote independence in ADL's, mobility, safety and/or upper extremity function for ADL's. Plan of Care: ADL Retraining, Functional Mobility, UE Funct Exercise/Act Treatment Duration: Jan 10, 2020 Frequency: Modified Program (IRF) (11/10) Estimated Hrs Per Day: 1.5 hours per day Rehab Potential: Fair Time/GCodes Start Time: 11:05 Stop Time: 11:35 Total Time Billed (hr/min): 30 Billed Treatment Time 1 visit-ADL 1 (10 mins) EX 1 (20 mins) LES MUELLER Dec 22, 2019 13:16
--- NOTE | 2019-12-22 13:26 | NUR ---
Noted significant amount of drainage through right cast/splint. New KIRSTY wrap applied. Orthopaedic Surgeon was Dr. Villarreal in Home, his office contacted for further instruction. Nurse, Citlaly at Physician office took call back number and will do further investigation to give further instruction for patient care. Patient states that when drainage came through KIRSTY bandage before, a clean KIRSTY wrap was applied.
--- NOTE | 2019-12-22 13:49 | NUR ---
Call back received from Dr. Sher's office. Nurse, Nancy, suggested that an Orthopedic physician here assess area. States that some drainage is to be expected. Will notify Dr. Jimenez.
--- NOTE | 2019-12-22 15:21 | Physical Therapy Daily Note ---
PT Daily Note-Current Subjective Pt laying Supine in bed upon arrival. Pt agrees to PT. Mental Status Patient Orientation: Person, Place, Situation Transfers SCALE: Activities may be completed with or without assistive devices. 1-Hrbltaonss-rxhjhno completes the activity by him/herself with no assistance from a helper. 5-Set-up or Clean-up Assistance-helper sets up or cleans up; patient completes activity. [place] assists only prior to or following the activity. 4-Supervision or Touching Assistance-helper provides verbal cues and/or touching/steadying and/or contact guard assistance as patient completes activity. Assistance may be provided throughout the activity or intermittently. 3-Partial/Moderate Assistance-helper does LESS THAN HALF the effort. [place] lifts, holds or supports trunk or limbs, but provides less than half the effort. 2-Substantial/Maximal Assistance-helper does MORE THAN HALF the effort. [place] lifts or holds trunk or limbs and provides more than half the effort. 1-Bjxxvnhjo-kbihyc does ALL the effort. Patient does none of the effort to complete the activity. Or, the assistance of 2 or more helpers is required for the patient to complete the activity. If activity was not attempted, code reason: 7-Patient Refused. 9-Not Applicable-not attempted and the patient did not perform the activity before the current illness, exacerbation or injury. 10-Not Attempted due to Environmental Limitations-(lack of equipment, weather restraints, etc.). 88-Not Attempted due to Medical Conditions or Safety Concerns. Weight Bearing Right Lower Extremity: Right Non Weight Bearing Left Lower Extremity: Left Weight Bearing/Tolerated Exercises Supine Ex: Ankle pumps, Quad Set, Glut sets, Heel Slides, Short Arc Quads, Straight leg raise, Hip abd/add Supine Reps: 20 Seated Therapy Exercises: Ankle pumps, Hip flexion, Kicking activity Seated Reps: 15 Treatments VP REVENUE [employer]CLE issued written HEP for Seated & Supine EX, then reviewed it. Pt resting in bed with all needs met, call light in hand. Assessment Current Status: Good Progress Pt charline. EX well although still has difficulty with safety awareness. PT Short Term Goals Short Term Goals Time Frame: Dec 27, 2019 Roll Left & Right: 4 Sit to lyin Lying to sitting on side of be: 4 Sit to stand: 4 Chair/ffm-vh-rvfgl transfer: 4 Walk 10 feet: 3 PT Shelter Goals Shelter Goals PT Shelter Goals Time Frame: Jan 10, 2020 Roll Left & Right (QC): 6 Sit to Lying (QC): 6 Lying-Sitting on Side/Bed(QC): 6 Sit to Stand (QC): 6 Chair/Zor-hj-Zmlxy Xfer(QC): 6 Toilet Transfer (QC): 6 Car Transfer (QC): 6 Does the Patient Walk: Yes Walk 10 feet (QC): 5 Walk 50ft with 2 Turns (QC): 5 Walk 150 ft (QC): 5 Walking 10ft on Uneven Surface: 5 1 Step (curb) (QC): 3 4 Steps (QC): 88 12 Steps (QC): 88 Picking up an Object (QC): 3 Does the Pt use WC or Scooter?: Yes Wheel 50 feet with 2 turns (QC: 6 Type: Manual Wheel 150 feet: 6 PT Plan Problem List Problem List: Activity Tolerance, Safety Treatment/Plan Treatment Plan: Continue Plan of Care Treatment Plan: Bed Mobility, Education, Functional Activity Piero, Functional Strength, Group Therapy, Gait, Safety, Therapeutic Exercise, Transfers Treatment Duration: Jan 10, 2020 Frequency: Modified Program (IRF) (11/10) Estimated Hrs Per Day: 1.5 hours per day Patient and/or Family Agrees t: Yes Safety Risks/Education Patient Education: Transfer Techniques, Correct Positioning, Safety Issues Teaching Recipient: Patient Teaching Methods: Discussion Response to Teaching: Reinforcement Needed Time/GCodes Time In: 1330 Time Out: 1400 Total Billed Treatment Time: 30 Total Billed Treatment 1, EX x2 (30m) RAVI MARC PTA Dec 22, 2019 15:21
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
[2019-12-22 17:23] VITALS: BP 106/57
[2019-12-22] MEDS: LEVETIRACETAM 500 MG (KEPPRA) TAB PO SCH (20:43)
[2019-12-23 05:31] VITALS: BP 114/64
[2019-12-23] MEDS: IBUPROFEN 600 MG (MOTRIN) TAB PO PRN ×3 (06:32→21:46)
[2019-12-23] MEDS: ENOXAPARIN 40 MG/0.4 ML (LOVENOX) SYR SC SCH (08:32)
[2019-12-23] MEDS: LEVETIRACETAM 1,000 MG (KEPPRA) TABLET PO SCH ×2 (08:32→21:40)
[2019-12-23] MEDS: METHOCARBAMOL 750 MG (ROBAXIN) TAB PO SCH ×3 (08:32→21:37)
[2019-12-23] MEDS: DOCUSATE SODIUM 100 MG (COLACE) CAP PO SCH ×2 (09:00→21:47)
[2019-12-23] MEDS: polyethylene glycoL POWDER 17 GM (MIRALAX) PACK PO SCH ×2 (09:00→21:47)
[2019-12-23] MEDS: SENNA W/DOCUSATE (SENOKOT S) TABLET PO SCH ×2 (09:00→21:47)
--- NOTE | 2019-12-23 09:40 | Occupational Ther Daily Note ---
OT Current Status-Daily Note Subjective Pt alert, laying in bed when OT entered. Pt agreed to therapy. No c/o pain reported. Mental Status/Objective Patient Orientation: Person, Place, Time, Situation ADL-Treatment Pt agreed to taking shower. Pt supine to EOB with supervision. Pt required lesli t to don/doff foot brace. Pt transferred to knee scooter with SBA and wheeled to shower bench in bathroom. Verbal cues required for correct placement of knee scooter for safe transfer. Pt transferred to shower bench with SBA. Pt doffed upper body dressing with supervision. Pt leaned side to side to hike pants down hips. Pt required min assist to thread R leg out of lower body dressing. Pt required shower bench, hand held shower head, grabbars, and long handled sponge to complete shower. Pt was able to cleanse upper arms, upper/lower legs, chest, abdomen, buttocks, and mattie area. After shower, pt transferred to w/c with SBA. Pt wheeled to sink and completed oral hygiene independently while sitting. Pt wheeled to bed and transferred to EOB with SBA. After set up, pt donned shirt independently. Pt required min A to thread R leg into lower body, pt able to hike pants over hips while laying down. After set up, pt able to don L sock. Pt then transferred to knee scooter and wheeled to the gym. Therapy Code Descriptions/Definitions Functional [place] Measure: 0=Not Assessed/NA 4=Minimal Assistance 1=Total Assistance 5=Supervision or Setup 2=Maximal Assistance 6=Modified [place] 3=Moderate Assistance 7=Complete IndependenceSCALE: Activities may be completed with or without assistive devices. 8-Swbnjnoual-wtbdvdf completes the activity by him/herself with no assistance from a helper. 5-Set-up or Clean-up Assistance-helper sets up or cleans up; patient completes activity. [place] assists only prior to or following the activity. 4-Supervision or Touching Assistance-helper provides verbal cues and/or touching/steadying and/or contact guard assistance as patient completes activity. Assistance may be provided throughout the activity or intermittently. 3-Partial/Moderate Assistance-helper does LESS THAN HALF the effort. [place] lifts, holds or supports trunk or limbs, but provides less than half the effort. 2-Substantial/Maximal Assistance-helper does MORE THAN HALF the effort. [place] lifts or holds trunk or limbs and provides more than half the effort. 1-Pktulatli-syrpyn does ALL the effort. Patient does none of the effort to complete the activity. Or, the assistance of 2 or more helpers is required for the patient to complete the activity. If activity was not attempted, code reason: 7-Patient Refused. 9-Not Applicable-not attempted and the patient did not perform the activity before the current illness, exacerbation or injury. 10-Not Attempted due to Environmental Limitations-(lack of equipment, weather restraints, etc.). 88-Not Attempted due to Medical Conditions or Safety Concerns. Oral Hygiene (QC): 6 Bathing Location: L Arm, R Arm, L Upper Leg, R Upper Leg, L Lower Leg (including foot), R Lower Leg (including foot), Chest, Abdomen, Buttocks, Perineal Area Shower/Bathe Self (QC): 5 (Supervision for safety) Upper Body Dressing (QC): 5 Lower Body Dressing (QC): 3 On/Off Footwear: 5 Other Treatment Once in gym, pt completed 10 mins of UE strengthening on arm bike at 15 resistance to strengthen UE for daily task. During exercise, came in to check pt's R leg and for her to be in her bed. Pt transferred to knee scooter with SBA and wheeled back to room. Pt transferred to EOB with SBA. After therapy, pt laying in bed. Call light/phone in reach. All needs met. OT Shelter Goals Shelter Goals Time Frame: Jan 10, 2020 Eating (QC): 6 Oral Hygiene (QC): 6 Toileting Hygiene (QC): 6 Shower/Bathe Self (QC): 6 Upper Body Dressing (QC): 6 Lower Body Dressing (QC): 6 On/Off Footwear (QC): 6 1=Demonstrate adherence to instructed precautions during ADL tasks. 2=Patient will verbalize/demonstrate understanding of assistive devices/modifications for ADL. 3=Patient will improve strength/tolerance for activity to enable patient to perform ADL's. OT Education/Plan Problem List/Assessment Assessment: Decreased Activ Tolerance, Decreased UE Strength, Impaired Coordination, Impaired Funct Balance, Impaired I ADL's, Impaired Self-Care Skills Discharge Recommendations Plan/Recommendations: Continue POC Treatment Plan/Plan of Care Patient would benefit from OT for education, treatment and training to promote independence in ADL's, mobility, safety and/or upper extremity function for ADL's. Plan of Care: ADL Retraining, Functional Mobility, UE Funct Exercise/Act Treatment Duration: Jan 10, 2020 Frequency: Modified Program (IRF) (11/10) Estimated Hrs Per Day: 1.5 hours per day Rehab Potential: Fair Time/GCodes Start Time: 09:00 Stop Time: 10:00 Total Time Billed (hr/min): 60 Billed Treatment Time 1 visit-ADL 3 (50 mins) EX (10 mins) LES MUELLER Dec 23, 2019 09:40
--- NOTE | 2019-12-23 09:58 | PM&R Progress Note ---
Subjective HPI/CC On Admission Date Seen by Provider: Dec 23, 2019 Time Seen by Provider: 10:00 Subjective/Events-last exam 12/23/19: Patient doing much better today Appreciate Dr Gauthier evaluating the incision sites and removing the case and placing another cast Pain controlled 12/22/19: No seizures Met her who came to visit her A lot of mental issues Laxative will be given and a stool softener as she requests Overall participating in therapy CT negative Pt had a pretty good night Pain is well controlled Left foot still causes a lot of pain Has problems with coping due to mental illness Checked meds and labs Conferred with RN Reviewed therapy notes Review of Systems General: Fatigue, Malaise Musculoskeletal: leg pain, foot pain Objective Exam Vital Signs Vital Signs Date Time Temp Pulse Resp B/P (MAP) Pulse Ox O2 Delivery O2 Flow Rate FiO2 12/23/19 21:45 Room Air 12/23/19 17:58 36.8 86 16 113/66 (82) 93 Capillary Refill : Less Than 3 SecondsLess Than 3 Seconds General Appearance: No Apparent Distress, WD/WN, Chronically ill HEENT: PERRL/EOMI, Normal ENT Inspection, Pharynx Normal Neck: Full Range of Motion, Normal Inspection, Non Tender, Supple, Carotid Bruit Respiratory: Chest Non Tender, Lungs Clear, Normal Breath Sounds, No Accessory Muscle Use, No Respiratory Distress Cardiovascular: Regular Rate, Rhythm, No Gallop, No JVD, No Murmur, Normal Peripheral Pulses Gastrointestinal: Normal Bowel Sounds, No Organomegaly, No Pulsatile Mass, Non Tender, Soft Back: Normal Inspection, No CVA Tenderness, No Vertebral Tenderness Extremity: Normal Capillary Refill, Normal Inspection, Normal Range of Motion, Non Tender, No Calf Tenderness, Pedal Edema Neurologic/Psychiatric: Alert, Oriented x3, No Motor/Sensory Deficits, Normal Mood/Affect, 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 FIM Transfers Therapy Code Descriptions/Definitions Functional [place] Measure: 0=Not Assessed/NA 4=Minimal Assistance 1=Total Assistance 5=Supervision or Setup 2=Maximal Assistance 6=Modified [place] 3=Moderate Assistance 7=Complete IndependenceSCALE: Activities may be completed with or without assistive devices. 7-Syahkpbwjs-cogevim completes the activity by him/herself with no assistance from a helper. 5-Set-up or Clean-up Assistance-helper sets up or cleans up; patient completes activity. [place] assists only prior to or following the activity. 4-Supervision or Touching Assistance-helper provides verbal cues and/or touching/steadying and/or contact guard assistance as patient completes activity. Assistance may be provided throughout the activity or intermittently. 3-Partial/Moderate Assistance-helper does LESS THAN HALF the effort. [place] lifts, holds or supports trunk or limbs, but provides less than half the effort. 2-Substantial/Maximal Assistance-helper does MORE THAN HALF the effort. [place] l ifts or holds trunk or limbs and provides more than half the effort. 8-Pmvpckqjb-eqycch does ALL the effort. Patient does none of the effort to complete the activity. Or, the assistance of 2 or more helpers is required for the patient to complete the activity. If activity was not attempted, code reason: 7-Patient Refused. 9-Not Applicable-not attempted and the patient did not perform the activity before the current illness, exacerbation or injury. 10-Not Attempted due to Environmental Limitations-(lack of equipment, weather restraints, etc.). 88-Not Attempted due to Medical Conditions or Safety Concerns. Roll Left to Right (QC): 3 Sit to Lying (QC): 4 Sit to Stand (QC): 4 Chair/Hva-ou-Ophvp Xfer(QC): 4 Car Transfer (QC): 3 Gait Training Does the Patient Walk?: Yes Distance: 150' x2 Walk 10 feet (QC): 5 Walk 50 ft with 2 Turns(QC): 5 Walk 150 ft (QC): 5 Walking 10ft/uneven surface-QC: 5 Gait Persons Needed: 1 Gait Assistive Device: FWW Wheelchair Training Does the Pt Use a Wheelchair?: Yes Distance: 150' Wheel 50 ft with 2 turns (QC): 4 Wheel 150 ft (QC): 4 Type of Wheelchair: Manual Stair Training 1 Step (curb) (QC): 88 4 Steps (QC): 88 12 Steps (QC): 88 Balance Picking up an Object (QC): 88 ADL-Treatment Eating (QC): 6 Oral Hygiene (QC): 4 Bathing Location: L Arm, R Arm, L Upper Leg, R Upper Leg, R Lower Leg (including foot) (cast), Chest, Abdomen, Buttocks, Perineal Area Shower/Bathe Self (QC): 3 Upper Body Dressing (QC): 88 (Pt does not have regular clothe at this time. Pt's is bringing clothes later today.) Lower Body Dressing (QC): 1 On/Off Footwear (QC): 2 Toileting Hygiene (QC): 3 (Pt able to manage pants down and perform hygiene, assist managing pants up) Assessment/Plan Assessment and Plan Assess & Plan/Chief Complaint Assessment: Calcaneal fracture with ankle fracture Seizure d/o Hypoglycemia OCD Mental illness Plan: Pain control IRF protocol Home meds Monitor BP 12/21/19: Pain control Monitor liver enzymes and minimize Tylenol Maintain bowel regimen 12/22/19: Monitor for seizures Pain control BM regimen 12/23/19: Improved status today Pain controlled Appreciate Dr Gauthier (1) Calcaneal fracture (2) Chronic UTI (3) Hypoglycemia (4) Seizure disorder (5) OCD (obsessive compulsive disorder) (6) Depression (7) Anxiety (8) Constipation SYDNEE DONNELLY DO Dec 23, 2019 09:58
[2019-12-23] MEDS ORDERED: ACETAMINOPHEN 325 MG TABLET PO PRN (10:00)
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
--- NOTE | 2019-12-23 12:03 | Physical Therapy Daily Note ---
PT Daily Note-Current Subjective Pt. in room with who is supportive and helpful. Pt. denies pain, just states the Rx wears her out. Pt. states she has 6 pets that will be at her feel when she gets home, but no steps at all to get in the house. Pt. states passageways are open but house is not large Pain Location: No Pain Reported Mental Status Patient Orientation: Person, Place, Time, Situation, Normal For Age Attachments: Other-See Comments (mask while out of room, walker boot Left ) Transfers SCALE: Activities may be completed with or without assistive devices. 7-Cluacvebkl-orxywhf completes the activity by him/herself with no assistance from a helper. 5-Set-up or Clean-up Assistance-helper sets up or cleans up; patient completes activity. [place] assists only prior to or following the activity. 4-Supervision or Touching Assistance-helper provides verbal cues and/or touching/steadying and/or contact guard assistance as patient completes activity. Assistance may be provided throughout the activity or intermittently. 3-Partial/Moderate Assistance-helper does LESS THAN HALF the effort. [place] lifts, holds or supports trunk or limbs, but provides less than half the effort. 2-Substantial/Maximal Assistance-helper does MORE THAN HALF the effort. [place] lifts or holds trunk or limbs and provides more than half the effort. 4-Mayvsoxtg-lsdrkb does ALL the effort. Patient does none of the effort to complete the activity. Or, the assistance of 2 or more helpers is required for the patient to complete the activity. If activity was not attempted, code reason: 7-Patient Refused. 9-Not Applicable-not attempted and the patient did not perform the activity before the current illness, exacerbation or injury. 10-Not Attempted due to Environmental Limitations-(lack of equipment, weather restraints, etc.). 88-Not Attempted due to Medical Conditions or Safety Concerns. Roll Left & Right (QC): 6 Sit to Lying (QC): 6 Lying to Sitting/Side of Bed(Q: 6 Sit to Stand (QC): 6 Chair/Rca-cg-Gaotj Xfer(QC): 6 pts. TRFs are precarious and possibly unsafe but pt. is adamant she will not change her style. Pt. places her right knee/lower leg on scooter , then hands on scooter handle bars then rises from chair or bed awkwardly. Pt. would not hear of standing first in safer manner etc Weight Bearing Right Lower Extremity: Right Non Weight Bearing Left Lower Extremity: Left Weight Bearing/Tolerated Gait Training Does the Patient Walk?: Yes Walk 10 feet (QC): 6 Walk 50 ft with 2 Turns(QC): 6 Walk 150 ft (QC): 6 Gait Persons Needed: 1 gait with single leg scooter 160 ft x 2 CGA to SBA at fairly fast pace, pt. instructed that home environment will likely not allow for wide turns that pt. is taking ( which is all the scooter will do) This AIRFREIGHT OPERATIONS AGENT suggested pt. also trial FWW or crutches and practice this as she will likely need to at some point. Pt. refuses Exercises Supine Ex: Quad Set, Rolling, Glut sets, Lower trunk rotation, Heel Slides, Short Arc Quads, Scooting, Straight leg raise, Hip abd/add (side and suo) Supine Reps: [address] Ex=Flex, Abd, Ext (RLE only), Marching (RLE only) Standing Reps: 12 NuStep Minutes: 8 NuStep Workload: 2 Treatments RLE elevated while pt. on nustep Assessment Current Status: Good Progress pt. is adamant that she will not try another AD for ambulation and that her TRF style is her only option PT Short Term Goals Short Term Goals Time Frame: Dec 27, 2019 Roll Left & Right: 4 Sit to lyin Lying to sitting on side of be: 4 Sit to stand: 4 Chair/vqg-yu-pbcrn transfer: 4 Walk 10 feet: 3 PT Guide Goals Mcc Goals PT Guide Goals Time Frame: Jan 10, 2020 Roll Left & Right (QC): 6 Sit to Lying (QC): 6 Lying-Sitting on Side/Bed(QC): 6 Sit to Stand (QC): 6 Chair/Gbc-gh-Aiiac Xfer(QC): 6 Toilet Transfer (QC): 6 Car Transfer (QC): 6 Does the Patient Walk: Yes Walk 10 feet (QC): 5 Walk 50ft with 2 Turns (QC): 5 Walk 150 ft (QC): 5 Walking 10ft on Uneven Surface: 5 1 Step (curb) (QC): 3 4 Steps (QC): 88 12 Steps (QC): 88 Picking up an Object (QC): 3 Does the Pt use WC or Scooter?: Yes Wheel 50 feet with 2 turns (QC: 6 Type: Manual Wheel 150 feet: 6 PT Plan Treatment/Plan Treatment Plan: Continue Plan of Care Treatment Plan: Bed Mobility, Education, Functional Activity Pier[place], Functional Strength, Group Therapy, Gait, Safety, Therapeutic Exercise, Transfers Treatment Duration: Jan 10, 2020 Frequency: Modified Program (IRF) (11/10) Estimated Hrs Per Day: 1.5 hours per day Patient and/or Family Agrees t: Yes Safety Risks/Education Patient Education: Gait Training, Transfer Techniques, Correct Positioning, Disease Process, Safety Issues Teaching Recipient: Patient, Family Teaching Methods: Demonstration, Discussion Response to Teaching: Verbalize Understanding, Return Demonstration, Reinforcement Needed (safety issues and suggestions shared but pt. no open to a different wasy) Time/GCodes Time In: 1108 Time Out: 1208 Total Billed Treatment Time: 60 Total Billed Treatment 1,GT15m,FA20m,EX25m BIBIANA ZIEGLER PTA Dec 23, 2019 12:03
--- NOTE | 2019-12-23 13:30 | Occupational Ther Daily Note ---
OT Current Status-Daily Note Subjective Pt laying in bed when OT entered. Pt agreed to therapy. No c/o pain reported. present in room who is very helpful and initiative. Mental Status/Objective Patient Orientation: Person, Place, Time, Situation ADL-Treatment Pt supine-EOB, supervision. Transferred from EOB to knee scooter with SBA. Pt was educated on safe and functional tub transfer from knee scooter. Pt required verbal cue for placement of scooter for safe transfer. Pt transferred from knee scooter with SBA and verbal cues for hand placements. Pt transferred from shower bench with SBA and verbal cues to keep hand on brake. Pt then wheeled to gym. Therapy Code Descriptions/Definitions Functional [place] Measure: 0=Not Assessed/NA 4=Minimal Assistance 1=Total Assistance 5=Supervision or Setup 2=Maximal Assistance 6=Modified [place] 3=Moderate Assistance 7=Complete IndependenceSCALE: Activities may be completed with or without assistive devices. 6-Ijxxlyfrnp-marwteu completes the activity by him/herself with no assistance from a helper. 5-Set-up or Clean-up Assistance-helper sets up or cleans up; patient completes activity. [place] assists only prior to or following the activity. 4-Supervision or Touching Assistance-helper provides verbal cues and/or touching/steadying and/or contact guard assistance as patient completes activity. Assistance may be provided throughout the activity or intermittently. 3-Partial/Moderate Assistance-helper does LESS THAN HALF the effort. [place] lifts, holds or supports trunk or limbs, but provides less than half the effort. 2-Substantial/Maximal Assistance-helper does MORE THAN HALF the effort. [place] lifts or holds trunk or limbs and provides more than half the effort. 3-Tyyfcgczy-bytxah does ALL the effort. Patient does none of the effort to complete the activity. Or, the assistance of 2 or more helpers is required for the patient to complete the activity. If activity was not attempted, code reason: 7-Patient Refused. 9-Not Applicable-not attempted and the patient did not perform the activity before the current illness, exacerbation or injury. 10-Not Attempted due to Environmental Limitations-(lack of equipment, weather restraints, etc.). 88-Not Attempted due to Medical Conditions or Safety Concerns. 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 Pt required skilled instruction and handout for exercises. Pt wheeled back to room with SBA. Pt stated she needed to use the restroom, assisted pt to and from toilet. After therapy, pt in bathroom. Call light in reach. All needs met. Education OT Patient Education: Exercise program Teaching Recipient: Patient, Significant Other Teaching Methods: Demonstration, Handout, Discussion Response to Teaching: Verbalize Understanding, Return Demonstration OT Retirement Goals Retirement Goals Time Frame: Jan 10, 2020 Eating (QC): 6 Oral Hygiene (QC): 6 Toileting Hygiene (QC): 6 Shower/Bathe Self (QC): 6 Upper Body Dressing (QC): 6 Lower Body Dressing (QC): 6 On/Off Footwear (QC): 6 1=Demonstrate adherence to instructed precautions during ADL tasks. 2=Patient will verbalize/demonstrate understanding of assistive devices/modifications for ADL. 3=Patient will improve strength/tolerance for activity to enable patient to perform ADL's. OT Education/Plan Problem List/Assessment Assessment: Decreased Activ Tolerance, Impaired Coordination, Impaired Funct Balance, Impaired I ADL's, Impaired Self-Care Skills Discharge Recommendations Plan/Recommendations: Continue POC Treatment Plan/Plan of Care Patient would benefit from OT for education, treatment and training to promote independence in ADL's, mobility, safety and/or upper extremity function for ADL's. Plan of Care: ADL Retraining, Functional Mobility, UE Funct Exercise/Act Treatment Duration: Jan 10, 2020 Frequency: Modified Program (IRF) (11/10) Estimated Hrs Per Day: 1.5 hours per day Rehab Potential: Fair Time/GCodes Start Time: 13:00 Stop Time: 13:30 Total Time Billed (hr/min): 30 Billed Treatment Time 1 visit-ADL 1 (20 mins) EX 1 (10 mins) LES MUELLER Dec 23, 2019 13:30
--- NOTE | 2019-12-23 14:25 | Physical Therapy Daily Note ---
PT Daily Note-Current Subjective Pt. agrees to Rx, denies pain but states she is really tired. Pain Location: No Pain Reported Mental Status Patient Orientation: Normal For Age Transfers SCALE: Activities may be completed with or without assistive devices. 4-Mgblabgwam-ubsfzis completes the activity by him/herself with no assistance from a helper. 5-Set-up or Clean-up Assistance-helper sets up or cleans up; patient completes activity. [place] assists only prior to or following the activity. 4-Supervision or Touching Assistance-helper provides verbal cues and/or touching/steadying and/or contact guard assistance as patient completes activity. Assistance may be provided throughout the activity or intermittently. 3-Partial/Moderate Assistance-helper does LESS THAN HALF the effort. [place] lifts, holds or supports trunk or limbs, but provides less than half the effort. 2-Substantial/Maximal Assistance-helper does MORE THAN HALF the effort. [place] lifts or holds trunk or limbs and provides more than half the effort. 1-Kenumpnje-gcttrc does ALL the effort. Patient does none of the effort to complete the activity. Or, the assistance of 2 or more helpers is required for the patient to complete the activity. If activity was not attempted, code reason: 7-Patient Refused. 9-Not Applicable-not attempted and the patient did not perform the activity before the current illness, exacerbation or injury. 10-Not Attempted due to Environmental Limitations-(lack of equipment, weather restraints, etc.). 88-Not Attempted due to Medical Conditions or Safety Concerns. on off scooter from bed and chair in same described precarious technique as AM assuring this EMBEDDED SOFTWARE DESIGN ENGINEER " I promise Im safe" Weight Bearing Right Lower Extremity: Right Non Weight Bearing Left Lower Extremity: Left Weight Bearing/Tolerated Gait Training Does the Patient Walk?: Yes scooter 170ft x2 CGA to SBA, no LOB wide sweeping turns etc. nearby for all and protective Exercises Supine Ex: Pelvic tilt, Rolling, Glut sets, Knee to chest, Straight leg raise, Hip abd/add Supine Reps: 20 Assessment Current Status: Good Progress PT Short Term Goals Short Term Goals Time Frame: Dec 27, 2019 Roll Left & Right: 4 Sit to lyin Lying to sitting on side of be: 4 Sit to stand: 4 Chair/mkj-yj-tuagh transfer: 4 Walk 10 feet: 3 PT Prison Goals Prison Goals PT Laboratory Clerk Goals Time Frame: Jan 10, 2020 Roll Left & Right (QC): 6 Sit to Lying (QC): 6 Lying-Sitting on Side/Bed(QC): 6 Sit to Stand (QC): 6 Chair/Sqd-bi-Vdmla Xfer(QC): 6 Toilet Transfer (QC): 6 Car Transfer (QC): 6 Does the Patient Walk: Yes Walk 10 feet (QC): 5 Walk 50ft with 2 Turns (QC): 5 Walk 150 ft (QC): 5 Walking 10ft on Uneven Surface: 5 1 Step (curb) (QC): 3 4 Steps (QC): 88 12 Steps (QC): 88 Picking up an Object (QC): 3 Does the Pt use WC or Scooter?: Yes Wheel 50 feet with 2 turns (QC: 6 Type: Manual Wheel 150 feet: 6 PT Plan Treatment/Plan Treatment Plan: Continue Plan of Care Treatment Plan: Bed Mobility, Education, Functional Activity Piero, Functional Strength, Group Therapy, Gait, Safety, Therapeutic Exercise, Transfers Treatment Duration: Jan 10, 2020 Frequency: Modified Program (IRF) (11/10) Estimated Hrs Per Day: 1.5 hours per day Patient and/or Family Agrees t: Yes Safety Risks/Education Patient Education: Gait Training, Transfer Techniques, Reviewed Precautions, Correct Positioning, Instructions to Caregiver, Disease Process, Safety Issues Teaching Recipient: Patient Teaching Methods: Demonstration, Discussion Response to Teaching: Verbalize Understanding, Return Demonstration, Reinforcement Needed Time/GCodes Time In: 1400 Time Out: 1430 Total Billed Treatment Time: 30 Total Billed Treatment 1,GT15m,EX15m BIBIANA ZIEGLER EMBEDDED SOFTWARE DESIGN ENGINEER Dec 23, 2019 14:25
--- NOTE | 2019-12-23 14:41 | NUR ---
CM/SS CONCURRENT DOCUMENTATION DME: Exploring agencies in patient service area. She utilizes [facility] in hometown [place] but they have no medical equipment. Sister agency in [place] has knee walkers and tub transfer benches. Faxed patient demographics and diagnoses so they can confirm benefits and report back. [place] [facility] may deliver items to [place], [place] may need to berry picker machine operator. To be determined.
[2019-12-23 17:58] VITALS: BP 113/66
--- NOTE | 2019-12-23 19:16 | NUR ---
bedside report received from YAZAN RAE, assume care of pt
[2019-12-23] MEDS: LEVETIRACETAM 500 MG (KEPPRA) TAB PO SCH (21:37)
--- NOTE | 2019-12-23 21:40 | NUR ---
refused Colace, miralax & Senokot, c/o hayley leg pain level 5/10 on numeric scale, requests ibuprofen, Motrin 600mg given
--- NOTE | 2019-12-23 22:30 | NUR ---
resting quietly in bed, pain level 0/10 on CNPI SCALE
[2019-12-24] MEDS: IBUPROFEN 600 MG (MOTRIN) TAB PO PRN ×2 (05:42→21:29)
[2019-12-24 06:00] VITALS: BP 112/72
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
[2019-12-24] MEDS: METHOCARBAMOL 750 MG (ROBAXIN) TAB PO SCH ×3 (09:18→21:28)
[2019-12-24] MEDS: LEVETIRACETAM 1,000 MG (KEPPRA) TABLET PO SCH ×2 (09:19→21:28)
[2019-12-24] MEDS: ENOXAPARIN 40 MG/0.4 ML (LOVENOX) SYR SC SCH (09:19)
[2019-12-24] MEDS: SENNA W/DOCUSATE (SENOKOT S) TABLET PO SCH ×2 (09:19→21:31)
[2019-12-24] MEDS: polyethylene glycoL POWDER 17 GM (MIRALAX) PACK PO SCH ×2 (09:20→21:31)
[2019-12-24] MEDS: DOCUSATE SODIUM 100 MG (COLACE) CAP PO SCH ×2 (09:20→21:30)
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
[2019-12-24 16:08] VITALS: BP 110/62
--- NOTE | 2019-12-24 19:04 | NUR ---
bedside report received from DAVONTE RAE, assume care of pt
[2019-12-24] MEDS: LEVETIRACETAM 500 MG (KEPPRA) TAB PO SCH (21:28)
[2019-12-24] MEDS: ALPRAZolam 0.25 MG (XANAX) TAB PO PRN (21:28)
--- NOTE | 2019-12-24 21:28 | NUR ---
refused Colace, Senokot & miralax, c/o leg pain level 6/10 on numeric scale, Motrin 600mg given, pt asked for Xanax but did not believe she really needed it, pt anxious over wanting to go home, Xanax 0.25mg given
--- NOTE | 2019-12-24 22:20 | NUR ---
resting quietly in bed, pain level 0/10 on CNPI scale
[2019-12-25] MEDS: IBUPROFEN 600 MG (MOTRIN) TAB PO PRN ×2 (05:41→20:31)
--- NOTE | 2019-12-25 05:41 | NUR ---
c/o leg pain, level 6/10 on numeric scale, Motrin 600mg given
[2019-12-25 05:45] VITALS: BP 108/57
--- NOTE | 2019-12-25 06:20 | NUR ---
resting quietly in bed, pain level 0/10 on CNPI SCALE
[2019-12-25] MEDS: DOCUSATE SODIUM 100 MG (COLACE) CAP PO SCH ×2 (09:18→20:32)
[2019-12-25] MEDS: polyethylene glycoL POWDER 17 GM (MIRALAX) PACK PO SCH ×2 (09:18→20:32)
[2019-12-25] MEDS: LEVETIRACETAM 1,000 MG (KEPPRA) TABLET PO SCH ×2 (09:19→20:31)
[2019-12-25] MEDS: ENOXAPARIN 40 MG/0.4 ML (LOVENOX) SYR SC SCH (09:19)
[2019-12-25] MEDS: SENNA W/DOCUSATE (SENOKOT S) TABLET PO SCH ×2 (09:19→20:33)
[2019-12-25] MEDS: METHOCARBAMOL 750 MG (ROBAXIN) TAB PO SCH ×3 (09:19→20:31)
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
[2019-12-25 17:05] VITALS: BP 105/56
--- NOTE | 2019-12-25 19:14 | NUR ---
bedside report received from DAVONTE RAE, assume care of pt
[2019-12-25] MEDS: ALPRAZolam 0.25 MG (XANAX) TAB PO PRN (20:31)
[2019-12-25] MEDS: LEVETIRACETAM 500 MG (KEPPRA) TAB PO SCH (20:31)
--- NOTE | 2019-12-25 20:31 | NUR ---
pt refused Colace, Senokot & miralax, had BM today, c/o hayley leg pain level 9/10 on numeric scale, pt requested Motrin. Motrin 600mg given
--- NOTE | 2019-12-25 21:22 | NUR ---
resting quietly in bed, pain level 0/10 on CNPI SCALE
[2019-12-26] MEDS: IBUPROFEN 600 MG (MOTRIN) TAB PO PRN (05:18)
--- NOTE | 2019-12-26 05:18 | NUR ---
C/O PAIN LOWER LEGS, PAIN LEVEL 6/10 ON NUMERIC SCALE, MOTRIN 600MG GIVEN
[2019-12-26 05:26] VITALS: BP 127/69
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
[2019-12-26 06:02] LABS: BASOPHILS % (AUTO) 0 % (0-10); EOSINOPHILS # (AUTO) 0.2 10^3/uL (0.0-0.3); EOSINOPHILS % (AUTO) 3 % (0-10); HEMATOCRIT 34 % (35-52); HEMOGLOBIN 10.7 g/dL (11.5-16.0); LYMPHOCYTES # (AUTO) 1.9 10^3/uL (1.0-4.0); LYMPHOCYTES % (AUTO) 25 % (12-44); MEAN CORPUSCULAR HEMOGLOBIN 27 pg (25-34); MEAN CORPUSCULAR HGB CONC 32 g/dL (32-36); MEAN CORPUSCULAR VOLUME 85 fL (80-99); MEAN PLATELET VOLUME 11.9 fL (9.0-12.2); MONOCYTES # (AUTO) 0.5 10^3/uL (0.0-1.0); MONOCYTES % (AUTO) 6 % (0-12); NEUTROPHILS # (AUTO) 4.9 10^3/uL (1.8-7.8); NEUTROPHILS % (AUTO) 65 % (42-75); PLATELET COUNT 325 10^3/uL (130-400); WHITE BLOOD COUNT 7.6 10^3/uL (4.3-11.0)
[2019-12-26 06:20] LABS: ALANINE AMINOTRANSFERASE 23 U/L (0-55); ALBUMIN 3.6 GM/DL (3.2-4.5); ALKALINE PHOSPHATASE 105 U/L (40-136); BILIRUBIN,TOTAL 0.5 MG/DL (0.1-1.0); BUN/CREATININE RATIO 18; CALCIUM 8.5 MG/DL (8.5-10.1); CARBON DIOXIDE 23 MMOL/L (21-32); CHLORIDE 106 MMOL/L (98-107); CREATININE SERUM 0.84 MG/DL (0.60-1.30); GFR ESTIMATED > 60; GLUCOSE 85 MG/DL (70-105); POTASSIUM 3.7 MMOL/L (3.6-5.0); SODIUM 138 MMOL/L (135-145); TOTAL PROTEIN 7.4 GM/DL (6.4-8.2)
[2019-12-26] MEDS: LEVETIRACETAM 1,000 MG (KEPPRA) TABLET PO SCH (08:00)
[2019-12-26] MEDS: ENOXAPARIN 40 MG/0.4 ML (LOVENOX) SYR SC SCH (08:00)
[2019-12-26] MEDS: METHOCARBAMOL 750 MG (ROBAXIN) TAB PO SCH (08:00)
[2019-12-26] MEDS ORDERED: OXC5T PO (08:13)
[2019-12-26] MEDS ORDERED: ALPR.25T PO (08:13)
[2019-12-26] MEDS ORDERED: METH750T3 PO (08:13)
[2019-12-26] MEDS ORDERED: SENN-20 PO (08:13)
--- NOTE | 2019-12-26 08:17 | D/C HH Face to Face Order ---
D/C Face to Face Orders Reconcile Patient Problems Problems Reviewed?: Yes Instructions for Patient Home Health Patient Instructions/FollowUp: PCP 1 week Physician to follow Patient: PCP Discharge Diet for Home: No Restrictions Patient Problems: Calcaneous fractures Patient Data-Allergies,Ht & Wt Patient Allergies: Coded Allergies: No Allergy Information Available (Unverified , 12/20/19) Home Health Need/Face to Face Date of Face to Face: Dec 26, 2019 Clinical Findings: Generalized weakness and fatigue, Instability, Muscle weakness, Unsteady gait I have seen Pt [id number]-[id number]: Yes Discharged To: Home Diagnosis/Conditions: Calcaneous fractures Patient is Homebound due to: CognItive deficits, Zaki fall risk due to instabilty, Pain w/ambulation Homebound Status Due to the above stated illness, injury or surgical procedure (medical condition or diagnosis) and associated clinical findings, the patient is homebound because of his/her inability to leave home except with aid of a supportive device and/or person AND leaving the home requires a considerable and taxing effort or is medically contraindicated. Pt req the following assistanc: Walker Home Health Nursing Orders Home Health Services Order: Collar Baster-Evaluate & Treat, Physical Therapy-Evaluate & Treat Certify Stmt I certify that this patient is under my care and that I, a nurse practitioner or a physician; a billing assistant working with me, had a face to face encounter that - meets the physician face to face encounter requirements with this patient as dated. SYDNEE DONNELLY DO Dec 26, 2019 08:17
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
[2019-12-26] MEDS: SENNA W/DOCUSATE (SENOKOT S) TABLET PO SCH (09:00)
[2019-12-26] MEDS: DOCUSATE SODIUM 100 MG (COLACE) CAP PO SCH (09:00)
[2019-12-26] MEDS: polyethylene glycoL POWDER 17 GM (MIRALAX) PACK PO SCH (09:00)
--- NOTE | 2019-12-26 09:58 | Physical Therapy Daily Note ---
PT Daily Note-Current Subjective Pt very excited to DC today. Agrees to FWW training as she states her wt bearing foot in boot ins feeling better and she can probably tolerate it now and has a FWW at home. No c/o pain today Pain Location: No Pain Reported Mental Status Patient Orientation: Normal For Age Attachments: Other-See Comments (casted RLE foot ankle, boot L foot ankle) Transfers SCALE: Activities may be completed with or without assistive devices. 4-Kngyeksfmr-hyuvxtt completes the activity by him/herself with no assistance from a helper. 5-Set-up or Clean-up Assistance-helper sets up or cleans up; patient completes activity. [place] assists only prior to or following the activity. 4-Supervision or Touching Assistance-helper provides verbal cues and/or touching/steadying and/or contact guard assistance as patient completes ac tivity. Assistance may be provided throughout the activity or intermittently. 3-Partial/Moderate Assistance-helper does LESS THAN HALF the effort. [place] lifts, holds or supports trunk or limbs, but provides less than half the effort. 2-Substantial/Maximal Assistance-helper does MORE THAN HALF the effort. [place] lifts or holds trunk or limbs and provides more than half the effort. 3-Niimygjdf-rgqjhs does ALL the effort. Patient does none of the effort to complete the activity. Or, the assistance of 2 or more helpers is required for the patient to complete the activity. If activity was not attempted, code reason: 7-Patient Refused. 9-Not Applicable-not attempted and the patient did not perform the activity before the current illness, exacerbation or injury. 10-Not Attempted due to Environmental Limitations-(lack of equipment, weather restraints, etc.). 88-Not Attempted due to Medical Conditions or Safety Concerns. Roll Left & Right (QC): 6 Sit to Lying (QC): 6 Lying to Sitting/Side of Bed(Q: 6 Sit to Stand (QC): 6 Chair/Ake-cg-Cicqp Xfer(QC): 6 Toilet Transfer (QC): 6 Car Transfer (QC): 6 some instruction and cuing today for safer TRFs was taken better as pt. more cooperative and did accomplish well with safer technique Weight Bearing Right Lower Extremity: Right Non Weight Bearing Left Lower Extremity: Left Weight Bearing/Tolerated Gait Training Does the Patient Walk?: Yes Walk 10 feet (QC): 6 Walk 50 ft with 2 Turns(QC): 6 Walk 150 ft (QC): 6 Walking 10ft/uneven surface-QC: 6 Gait Persons Needed: 0 Gait Assistive Device: FWW (scooter used as well) gait training in room covering turns, approaches , backing and safety with good technique and tolerance, scooter gait also covered with continued awkward TRFs but some improvement. The wide turns and awkward TRFs making FWW a better option in this PTAs view and pts as well by the end of Rx. Pt. states she plans to use FWW as often as possible Stair Training 1 Step (curb) (QC): 4 4 Steps (QC): 88 12 Steps (QC): 88 Stairs: Pattern: Step to reviewed gentle lift of scooter over small curb with CGA Balance Picking up an Object (QC): 88 Exercises Supine Ex: Quad Set, Rolling, Glut sets, Heel Slides, Short Arc Quads, Scooting, D2 F/E UE, Hip abd/add Supine Reps: 20 Seated Therapy Exercises: Sit to stand, Long arc quads, Hip flexion Seated Reps: 20 Assessment Current Status: Good Progress PT Short Term Goals Short Term Goals Time Frame: Dec 27, 2019 Roll Left & Right: 4 Sit to lyin Lying to sitting on side of be: 4 Sit to stand: 4 Chair/ohk-fu-scjvs transfer: 4 Walk 10 feet: 3 PT Assistant Toddler Teacher Goals Senior Living Goals PT Assistant Toddler Teacher Goals Time Frame: Jan 10, 2020 Roll Left & Right (QC): 6 Sit to Lying (QC): 6 Lying-Sitting on Side/Bed(QC): 6 Sit to Stand (QC): 6 Chair/Spa-fs-Xqqyg Xfer(QC): 6 Toilet Transfer (QC): 6 Car Transfer (QC): 6 Does the Patient Walk: Yes Walk 10 feet (QC): 5 Walk 50ft with 2 Turns (QC): 5 Walk 150 ft (QC): 5 Walking 10ft on Uneven Surface: 5 1 Step (curb) (QC): 3 4 Steps (QC): 88 12 Steps (QC): 88 Picking up an Object (QC): 3 Does the Pt use WC or Scooter?: Yes Wheel 50 feet with 2 turns (QC: 6 Type: Manual Wheel 150 feet: 6 PT Plan Treatment/Plan Treatment Plan: Discontinue PT, goals met Treatment Plan: Bed Mobility, Education, Functional Activity Piero, Functional Strength, Group Therapy, Gait, Safety, Therapeutic Exercise, Transfers Treatment Duration: Jan 10, 2020 Frequency: Modified Program (IRF) (11/10) Estimated Hrs Per Day: 1.5 hours per day Patient and/or Family Agrees t: Yes Safety Risks/Education Patient Education: Gait Training, Transfer Techniques, Correct Positioning, Dis ease Process, Safety Issues Teaching Recipient: Patient Teaching Methods: Demonstration, Discussion Response to Teaching: Verbalize Understanding, Return Demonstration, Reinforcement Needed Time/GCodes Time In: 900 Time Out: 1000 Total Billed Treatment Time: 60 Total Billed Treatment 1,EX20m,GT15m,FA25m BIBIANA ZIEGLER PHARMACOG[employer]Y TEACHER Dec 26, 2019 09:58
--- NOTE | 2019-12-26 11:25 | Occupational Ther Daily Note ---
OT Current Status-Daily Note Subjective Pt with nursing when OT entered. Pt agreed to therapy. No c/o pain reported. Mental Status/Objective Patient Orientation: Person, Place, Time, Situation ADL-Treatment Pt transferred to and from tub shower bench, independently. Pt was able to bring LE over tub ledge. Pt doffed upper and lower body dressing independently (side to side motion to doff lower body dressing.) Pt able to doff/don leg brace independently. Pt required tub shower bench, hand held shower head, grabbars to complete shower. Pt was able to cleanse upper arms, upper/lower legs, chest, abdomen, mattie, and buttocks (side to side to cleanse buttocks). Pt then wheeled to sink and completed oral care independently while standing with knee scooter. After shower, pt transferred to bed independently. Pt was able to don upper and lower body dressing independently. Therapy Code Descriptions/Definitions Functional [place] Measure: 0=Not Assessed/NA 4=Minimal Assistance 1=Total Assistance 5=Supervision or Setup 2=Maximal Assistance 6=Modified [place] 3=Moderate Assistance 7=Complete IndependenceSCALE: Activities may be completed with or without assistive devices. 8-Nxgnmtzpdz-qdzpsmb completes the activity by him/herself with no assistance from a helper. 5-Set-up or Clean-up Assistance-helper sets up or cleans up; patient completes activity. [place] assists only prior to or following the activity. 4-Supervision or Touching Assistance-helper provides verbal cues and/or touching/steadying and/or contact guard assistance as patient completes activity. Assistance may be provided throughout the activity or intermittently. 3-Partial/Moderate Assistance-helper does LESS THAN HALF the effort. [place] lifts, holds or supports trunk or limbs, but provides less than half the effort. 2-Substantial/Maximal Assistance-helper does MORE THAN HALF the effort. [place] lifts or holds trunk or limbs and provides more than half the effort. 2-Qkryhovyc-jqkctz does ALL the effort. Patient does none of the effort to complete the activity. Or, the assistance of 2 or more helpers is required for the patient to complete the activity. If activity was not attempted, code reason: 7-Patient Refused. 9-Not Applicable-not attempted and the patient did not perform the activity before the current illness, exacerbation or injury. 10-Not Attempted due to Environmental Limitations-(lack of equipment, weather restraints, etc.). 88-Not Attempted due to Medical Conditions or Safety Concerns. Eating (QC): 6 (per clinical judgement) Oral Hygiene (QC): 6 Bathing Location: L Arm, R Arm, L Upper Leg, R Upper Leg, L Lower Leg (including foot), R Lower Leg (including foot), Chest, Abdomen, Buttocks, Perineal Area Shower/Bathe Self (QC): 6 Upper Body Dressing (QC): 6 Lower Body Dressing (QC): 6 On/Off Footwear: 6 Toileting Hygiene (QC): 6 (per clincial judgement) Toilet Transfer (QC): 6 (per clinical judgement) Other Treatment Pt completed 6 theraputty hand exercises while laying in bed with HOB raised to strengthen pinch/tax agent for ADL task . Pt required skilled instruction and handout for exercises, pt was able to verbalize understanding and return demonstration. After therapy, pt laying in bed. Call light/phone in reach. All needs met. Education OT Patient Education: Exercise program Teaching Recipient: Patient Teaching Methods: Handout, Discussion Response to Teaching: Verbalize Understanding, Return Demonstration OT Manager Development Goals Manager Development Goals Time Frame: Jan 10, 2020 Eating (QC): 6 (met per clinical judgement) Oral Hygiene (QC): 6 (met) Toileting Hygiene (QC): 6 (met per clinical judgement) Shower/Bathe Self (QC): 6 (met) Upper Body Dressing (QC): 6 (met) Lower Body Dressing (QC): 6 (met) On/Off Footwear (QC): 6 (met) 1=Demonstrate adherence to instructed precautions during ADL tasks. 2=Patient will verbalize/demonstrate understanding of assistive devices/modifications for ADL. 3=Patient will improve strength/tolerance for activity to enable patient to perform ADL's. OT Education/Plan Discharge Recommendations Plan/Recommendations: Discharge/Goals Met Treatment Plan/Plan of Care Patient would benefit from OT for education, treatment and training to promote i ndependence in ADL's, mobility, safety and/or upper extremity function for ADL's. Plan of Care: ADL Retraining, Functional Mobility, UE Funct Exercise/Act Treatment Duration: Jan 10, 2020 Frequency: Modified Program (IRF) (15/7) Estimated Hrs Per Day: 1.5 hours per day Rehab Potential: Fair Time/GCodes Start Time: 10:30 Stop Time: 11:30 Total Time Billed (hr/min): 60 Billed Treatment Time 1 visit -ADL 3 (50 mins) EX (10 mins) LES MUELLER Dec 26, 2019 11:25
[2019-12-26 12:00] VITALS: BP 127/69
--- NOTE | 2019-12-26 12:48 | NUR ---
CM/SS DISCHARGE Patient discharged to home today at her request and with approval of physician and team members. HH: Finalized with [facility] in [facility] for home health PT and OT, they confirmed patient's insurance benefits and will inform patient she will have a $48 co-pay with each visit. Josiah/Kimmy stated they plan to begin services tomorrow. FX: [phone] PH: [phone] DME: Knee Walker and Tub Transfer Bench. Patient's spouse ordered transfer bench and anticipates delivery today. Walker referral through [facility] in [place] finalized this a.m. Staff did not confirm timely whether this is an insurance covered item, patient/spouse chose to go ahead and discharge and followup with [facility] in person. [employer] reserved the knee walker on behalf of patient and provided updated insurance card copy to agency for this process. Patient indicated they could pay the $50 monthly rental without difficulty if necessary. Referrals were complicated because patient demographics indicated her insurance was [id number] when in fact it was [employer] (she resides in and [place] in [place]). Unit RN updated throughout process.
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
== END 2019-12-26 12:05 | disposition home health service (06) | DRG 561 ==
PROVIDERS: ADMIT Internal Medicine; ATTEND Internal Medicine
DX: S92.001D Unspecified fracture of right calcaneus, subsequent encounter for fracture with routine healing (principal); S82.61XD Displaced fracture of lateral malleolus of right fibula, subsequent encounter for closed fracture with routine healing; K59.00 Constipation, unspecified; E16.2 Hypoglycemia, unspecified; G40.909 Epilepsy, unspecified, not intractable, without status epilepticus; F42.9 Obsessive-compulsive disorder, unspecified; F32.9 Major depressive disorder, single episode, unspecified; F41.9 Anxiety disorder, unspecified; F90.9 Attention-deficit hyperactivity disorder, unspecified type; V43.52XD Car driver injured in collision with other type car in traffic accident, subsequent encounter
CPT/HCPCS: 36415; 70450; 80053; 85025